=== PATIENT | male | born 1975 | race Caucasian/White ===

== ENCOUNTER 2025-06-08 07:43 | Outpatient (OUT) | payer OTHER, SELFPAY ==
--- OUTSIDE RECORDS SUMMARY | 2025-06-07 08:00 | XMS_ITS | Encounter Summary ---
Author Organization [facility] Address [address] [place] [address] Care Team Providers Care Environmental Lead Name Role Phone Efra Meyers MD Primary Care Provider Reason for Visit * ReasonCommentsHypertensionPt has a bp log with himDiabetes MellitusPt has a log of his blood sugars Encounter Details DateTypeDepartmentCare Team (Latest Contact Info)Jgklpgtxerk48/03/2025 8:00 AM ESTOffice Visit [facility] [address] [place] [address] Pump, Valerie LANDMAN [address] [place] [address] Essential hypertension (Primary Dx); Type 2 diabetes mellitus without complication, without long-term current use of insulin (HCC) Social History Tobacco UseTypesPacks/DayYears UsedDateSmoking Tobacco: NeverPassive Smoke Exposure: PastSmokeless Tobacco: NeverAlcohol UseStandard Drinks/WeekComments Never0 (1 standard drink = 0.6 oz pure alcohol)B1300 Health LiteracyAnswerDate RecordedHow often do you need to have someone help you when you read instructions, pamphlets, or other written material from your doctor or pharmacy? Never05/31/2024Social Connection and Isolation PanelAnswerDate RecordedIn a typical week, how many times do you talk on the phone with family, friends, or neighbors?More than three times a week05/31/2024How often do you get together with friends or relatives?More than three times a week05/31/2024How often do you attend sabianism or episcopal services?Patient qolvhxyi12/26/2024Do you belong to any clubs or organizations such as sabianism groups, unions, fraternal or athletic groups, or school groups?No05/31/2024How often do you attend meetings of the clubs or organizations you belong to?Never05/31/2024re you , , , , never , or living with a partner?Living with partner 05/31/2024UDIT-CAnswerDate RecordedQ1: How often do you have a drink containing alcohol?Never05/31/2024Q2: How many drinks containing alcohol do you have on a typical day when you are drinking?Patient does not drink05/31/2024Q3: How often do you have six or more drinks on one occasion?Never05/31/2024Overall Financial Resource Strain (CARDIA)AnswerDate RecordedHow hard is it for you to pay for the very basics like food, housing, medical care, and heating?Not very hard 05/31/2024[facility] [place] [facility] - Occupational Stress QuestionnaireAnswerDate RecordedDo you feel stress - tense, restless, nervous, or anxious, or unable to sleep at night because yourmind is troubled all the time - these days?Not at all05/31/2024Exercise Vital SignAnswerDate RecordedOn average, how many days per week do you engage in moderate to strenuous exercise (like a brisk walk)?4 days05/31/2024On average, how many minutes do you engage in exercise at this level?20 min05/31/2024Hunger Vital SignAnswerDate Recorded Within the past 12 months, you worried that your food would run out before you got the money to buymore.Never true05/31/2024Within the past 12 months, the food you bought just didn't last and you didn't have money to get more.Never true 05/31/2024RAPARE - TransportationAnswerDate RecordedIn the past 12 months, has lack of transportation kept you from medical appointments or from getting medications?No05/31/2024In the past 12 months, has lack of transportation kept you from meetings, work, or from getting things needed for daily living?No 05/31/2024Housing Stability Vital SignAnswerDate RecordedIn the last 12 months, was there a time when you were not able to pay the mortgage or rent on time?No 05/31/2024Number of Times Moved in the Last YearNot on file05/31/2024t any time in the past 12 months, were you homeless or living in a usp (including now)? No05/31/2024Sex and Gender InformationValueDate RecordedSex Assigned at BirthNot on fileLegal MqxHnlg5509/17/2022 6:30 PM EDTGender IdentityNot on fileSexual OrientationNot on filedocumented as of this encounter Last Filed Vital Signs Vital SignReadingTime TakenCommentsBlood Tmbplacg216/7806/07/2025 8:21 AM EST Xyvps940206/07/2025 7:53 AM ESTTemperature--Respiratory Rate--Oxygen Saturation-- Inhaled Oxygen Concentration--Ecbvju009 kg (228 lb 12.8 oz)06/07/2025 7:53 AM ESTHeight--Body Mass Index38.6705/24/2025 7:56 AM ESTdocumented in this encounter Progress Notes * Valerie Pump, LANDMAN - 06/07/2025 8:00 AM EST Images from the original note were not included. kasey Boy Mathew is a 49 y.o. male presents with chief complaint of Hypertension (Pt has a bp log with him) and Diabetes Mellitus (Pt has a log of his blood sugars) HPI: Hypertension Pertinent negatives include no chest pain, headaches, neck pain, palpitations or shortness of breath. History of Present Illness The patient is a 49-year-old male who presents for follow-up of hypertension and diabetes. Blood pressure readings at home are typically in the range of 120s to 130s, with occasional readings reaching 130. Current medications include atenolol, lisinopril, and metformin 500 mg once daily. The last A1c check in 11/2024 was 5.9. He has a surgery scheduled for 06/22/2025 or 06/23/2025 for polyp removal in his nose, which is expected to take approximately 15 minutes. Additionally, there is a chain of swollen lymph nodes on theright side of his neck, which the specialist is not overly concerned about. SUBJECTIVE: MEDICATIONS: Current Outpatient Medications Medication Instructions aspirin 81 MG EC tablet Every 24 hours atenolol (TENORMIN) 25 mg, Oral, 2 times daily atorvastatin (LIPITOR) 10 mg, Oral, Daily cetirizine (ZYRTEC) 10 mg, Oral, Daily PRN fluticasone (Flonase) 50 MCG/ACT nasal spray Two sprays on left side twice daily. Shake gently. Before first use, prime pump. After use, clean tip and replace cap. FreeStyle lancets Use to check blood sugars once a day glucose blood (FREESTYLE LITE) test strip Use to check blood sugars once a day lisinopril 10 mg, Oral, Daily metFORMIN XR (Glucophage-XR) 500 MG 24 hr tablet TAKE 1 TABLET IN THE EVENING WITH A MEAL ALLERGIES: Allergies[1] History: Medical History[2] Surgical History[3] Family History[4] Social History Socioeconomic History Marital status: Unmarried Spouse name: Not on file Number of children: Not on file Years of education: Not on file Highest education level: Not on file Occupational History Not on file Tobacco Use Smoking status: Never Passive exposure: Past Smokeless tobacco: Never Vaping Use Vaping status: Never Used Substance and Sexual Activity Alcohol use: Never Drug use: Never Sexual activity: Defer Other Topics Concern Not on file Social History Narrative Not on file Social Drivers of Health Financial Resource Strain: Low Risk (05/31/2024) Overall Financial Resource Strain (CARDIA) Difficulty of Paying Living Expenses: Not very hard Food Insecurity: No Food Insecurity (05/31/2024) Hunger Vital Sign Worried About Running Out of Food in the Last Year: Never true Ran Out of Food in the Last Year: Never true Transportation Needs: No Transportation Needs (05/31/2024) PRAPARE - Transportation Lack of Transportation (Medical): No Lack of Transportation (Non-Medical): No Physical Activity: Insufficiently Active (05/31/2024) Exercise Vital Sign Days of Exercise per Week: 4 days Minutes of Exercise per Session: 20 min Stress: No Stress Concern Present (05/31/2024) [place] [facility] - Occupational Stress Questionnaire Feeling of Stress : Not at all Social Connections: Unknown (05/31/2024) Social Connection and Isolation Panel Frequency of Communication with Friends and Family: More than three times a week Frequency of Social Gatherings with Friends and Family: More than three times a week Attends Holiness Services: Patient declined Active Member of Clubs or Organizations: No Attends Club or Organization Meetings: Never Marital Status: Living with partner Intimate Partner Violence: Not on file Housing Stability: Unknown (05/31/2024) Housing Stability Vital Sign Unable to Pay for Housing in the Last Year: No Number of Times Moved in the Last Year: Not on file Homeless in the Last Year: No I have reviewed and reconciled the history and medication list with the patient today. REVIEW OF SYMPTOMS: Review of Systems Constitutional: Negative. Negative for appetite change, chills, fatigue and fever. HENT: Negative. Negative for congestion, ear discharge, ear pain, postnasal drip, rhinorrhea, sinuspressure, sinus pain, sneezing, sore throat and trouble swallowing. Eyes: Negative. Negative for visual disturbance. Respiratory: Negative. Negative for cough, shortness of breath and wheezing. Cardiovascular: Negative. Negative for chest pain, palpitations and leg swelling. Gastrointestinal: Negative. Negative for abdominal distention, abdominal pain, blood in stool, diarrhea, nausea and vomiting. Genitourinary: Negative. Negative for decreased urine volume, difficulty urinating, dysuria, flank pain, frequency, hematuria and urgency. Musculoskeletal: Negative. Negative for arthralgias, myalgias and neck pain. Skin: Negative. Negative for rash. Small mass on right side of neck, decreased in size and following with ENT. Neurological: Negative for dizziness, tremors, weakness, light-headedness and headaches. Psychiatric/Behavioral: Negative. Negative for confusion, decreased concentration, self-injury and sleep disturbance. The patient is not nervous/anxious and is not hyperactive. Hematological: Negative. Negative for adenopathy. Does not bruise/bleed easily. Endocrine: Negative. Negative for polydipsia and polyphagia. Allergic/Immunologic: Negative for environmental allergies, food allergies and immunocompromised state. OBJECTIVE: Results Labs - A1c: 11/2024, 5.9% 08/24/2024 8:24 AM 11/29/2024 8:15 AM 02/27/2025 2:27 PM 04/07/2025 11:42 AM 04/19/2025 8:08 AM 05/24/2025 7:56 AM 06/07/2025 7:53 AM Vitals BMI 38.26 kg/m2 38.06 kg/m2 38.84 kg/m2 38.7 kg/m2 38.7 kg/m2 38.67 kg/m2 BSA (m2) 2.17 m2 2.15 m2 2.18 m2 2.18 m2 2.18 m2 2.18 m2 Systolic 130 132 132 128 164 125 158 Diastolic 76 76 84 76 80 69 80 Heart Rate 58 60 58 80 64 63 64 SpO2 97 % 97 % Temp 98.2 ??F Height (in) 5' 4.5 5' 4.5 5' 4.5 Weight (lb) 226.4 225.2 229.8 229 229 228.8 Visit Report Report Report Report Report Report Report Report Physical Exam Vitals and nursing note reviewed. Constitutional: General: He is not in acute distress. Appearance: Normal appearance. He is not ill-appearing, toxic-appearing or diaphoretic. HENT: Head: Normocephalic. Mouth/Throat: Mouth: Mucous membranes are moist. Cardiovascular: Rate and Rhythm: Normal rate and regular rhythm. Pulses: Normal pulses. Heart sounds: Normal heart sounds. No murmur heard. No friction rub. No gallop. Pulmonary: Effort: Pulmonary effort is normal. No respiratory distress. Breath sounds: Normal breath sounds. No wheezing, rhonchi or rales. Abdominal: General: Bowel sounds are normal. There is no distension. Palpations: Abdomen is soft. Tenderness: There is no abdominal tenderness. Musculoskeletal: General: No swelling or deformity. Normal range of motion. Cervical back: Normal range of motion and neck supple. Skin: General: Skin is warm and dry. Capillary Refill: Capillary refill takes less than 2 seconds. Findings: No bruising or erythema. Neurological: General: No focal deficit present. Mental Status: He is alert and oriented to person, place, and time. Mental status is at baseline. Motor: No weakness. Gait: Gait normal. Psychiatric: Mood and Affect: Mood normal. Behavior: Behavior normal. Thought Content: Thought content normal. Judgment: Judgment normal. Physical Exam Ears: Small amount of white discharge noted. Neck: Right cervical lymph node decreased in size from nickel to dime. Respiratory: Clear to auscultation, no wheezing, rales or rhonchi. ASSESSMENT AND PLAN: Assessment/Plan Diagnoses and all orders for this visit: Essential hypertension Type 2 diabetes mellitus without complication, without long-term current use of insulin (HCC) Assessment & Plan 1. Hypertension: - Blood pressure readings are within the target range, with home measurements typically around 120s/80s and occasional readings up to 130s. In-office reading was 138/78. - He is currently on atenolol and lisinopril. No changes to his hypertension management are necessary at this time. 2. Diabetes mellitus: - His A1c level was recorded as 5.9 in 11/2024, indicating good control of his diabetes. - He is advised to consult an email marketer for a diabetic retinopathy exam before his next appointment. Laboratory tests will be conducted today, including a urine test. - He is currently on metformin 500 mg once a day. Steroids can increase blood sugar levels, so caution is advised if prescribed. 3. Swollen lymph nodes: - He has a chain of swollen lymph nodes on the right side of his neck, which is likely an inflammatory response. - This will be monitored, and further investigation will be done if necessary. 4. Nasal polyp: - He has a nasal polyp scheduled for removal in two weeks. The procedure is expected to be quick and uncomplicated. - The polyp will be biopsied after removal. 5. Health maintenance: - He declined the influenza vaccine and the COVID-19 vaccine. A pneumonia vaccine was recommended due to his diabetes and age, with a suggestion to receive one now and another at age 63. Follow-up: The patient will follow up in 11/2024 for his wellness visit or sooner if needed. 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 No pertinent surgical history. [4] Family History Problem Relation Name Age of Onset Other (Low HDL) Mother Sherri Mathew Other (High cholesterol) Mother Sherri Mathew Other (Glucose intolerance) Mother Sherri Mathew Diabetes Mother Sherri Mathew Other (Low HDL) Father Tomas Mathew Other (High cholesterol) Father Tomas Mathew Other (CKD) Father Tomas Mathew Diabetes Father Tomas Mathew Heart disease Father Tomas Mathew Skin cancer Paternal Grandmother documented in this encounter Plan of Treatment DateTypeDepartmentCare Team (Latest Contact Info)Mgrxfnbalmw60/29/2025 8:00 AM ESTOffice Visit [facility] [place] [facility] [address] [facility] [address] [place] [address] Radha Garza MD [address] [facility] [address] [place] [address] 11/30/2025 8:00 AM EDTOffice Visit [facility] [address] [facility] [place] [id number] Valerie Berry NP [address] [facility] [place] [id number] documented as of this encounter Visit Diagnoses Diagnosis Essential hypertension- Primary Unspecified essential hypertension Type 2 diabetes mellitus without complication, without long-term current use of insulin (HCC) documented in this encounter Care Teams Team MemberRelationshipSpecialtyStart DateEnd Date Efra Meyers MD [address] [facility], [place] [id number] PCP - GeneralFamily Medicine04/04/25documented as of this encounter
--- OUTSIDE RECORDS SUMMARY | 2025-06-08 07:51 | XMS_ITS | Clinical Summary ---
Author Organization [employer] [facility] Address [id number] [place] [address] Care Team Providers Care Payroll Representative Name Role Phone Yessica Keen MD Primary Care Provider [phone] Allergies Active AllergyReactionsCriticalityNoted DateCommentsNo Known Drug Allergies 07/03/2016 Medications MedicationSigDispense QuantityRefillsLast FilledStart DateEnd DateStatus atenolol (TENORMIN) 25 mg tablet Take 25 mg by mouth 2 (two) times a day.05/25/2016Active XARELTO tablet 20 mg.06/12/2016Active Social History Tobacco UseTypesPacks/DayYears UsedDateSmoking Tobacco: NeverSmokeless Tobacco: NeverAlcohol UseStandard Drinks/WeekCommentsNo0 (1 standard drink = 0.6 oz pure alcohol)ChildcareAnswerDate FfnnjvswOobepwzfeDgdcead70/12/2019EmploymentAnswer Date FsqgthvkZhkcyibedaZmjvgvo48/12/2019Purpose - LifeAnswerDate RecordedPurpose and direction in sxceRsvgina22/11/2021Sex and Gender InformationValueDate RecordedSex Assigned at BirthNot on fileLegal HmdQpyo7402/08/2015 11:35 AM EDT Gender IdentityNot on fileSexual OrientationNot on file Last Filed Vital Signs Vital SignReadingTime TakenCommentsBlood Igdsjomp771/9807/03/2016 2:01 PM EST Ilwow351707/03/2016 2:01 PM ESTTemperature--Respiratory Ctoc516709/03/2015 2:01 PM ESTOxygen Saturation--Inhaled Oxygen Concentration--Yuitcs855.6 kg (235 lb) 07/03/2016 2:01 PM RKLXscidq179.6 cm (5' 4 )07/03/2016 2:01 PM ESTBody Mass Index40.34109/03/2015 2:01 PM EST Plan of Treatment Health MaintenanceDue DateLast DoneCommentsDepression Hmuoxqafo45/14/1986Tobacco Mytjgazep90/14/1986Adult BMI Phqppdvsr90/14/1992DTaP,Tdap and Td Vaccines (1 - Tdap)1992Zoster (Shingles) Vaccine (1 of 2)10/18/2023Influenza Vaccine 03/06/2025 Medical Devices Not on file Insurance Care Teams Team MemberRelationshipSpecialtyStart DateEnd Yessica Keen MD [address] [place] [address] PCP - GeneralFamily Qwsayogq47/19/16
--- OUTSIDE RECORDS SUMMARY | 2025-06-08 07:51 | XMS_ITS | Clinical Summary ---
Author Organization [facility] Address [address] [place] [address] Care Team Providers Care Resistor Inspector Name Role Phone Efra Meyers MD Primary Care Provider [phone] Allergies Active AllergyReactionsCriticalityNoted SqexLjpaktdiBztrsOkswlox66/16/2023 Grasses Animal Dander Medications MedicationSigDispense QuantityRefillsLast FilledStart DateEnd DateStatus aspirin 81 MG EC tablet 1 (one) time each day at the same timeActive metFORMIN XR (Glucophage-XR) 500 MG 24 hr tablet Indications:Type 2 diabetes mellitus without complication, without long-term current use of insulin (HCC)TAKE 1 TABLET IN THE EVENING WITH A MEAL 90 tablet 5Active lisinopril 10 MG tablet Indications:Essential hypertensionTAKE 1 TABLET DAILY 90 tablet 5Active atenolol (Tenormin) 25 MG tablet Indications:Essential hypertensionTake 1 tablet (25 mg) by mouth in the morning and 1 tablet (25 mg) before bedtime. 180 tablet 5Active glucose blood (FREESTYLE LITE) test strip Indications:Type 2 diabetes mellitus without complication, without long-term current use of insulin (HCC)Use to check blood sugars once a day 100 each 5Active FreeStyle lancets Indications:Type 2 diabetes mellitus without complication, without long-term current use of insulin (HCC)Use to check blood sugars once a day 100 each 5Active cetirizine (ZyrTEC) 10 MG tablet Indications:Nasal polypTake 1 tablet (10 mg) by mouth Daily as needed for allergies 90 tablet 6Active atorvastatin (Lipitor) 10 MG tablet Indications:Hyperlipidemia, unspecified hyperlipidemia typeTake 1 tablet (10 mg) by mouth Daily 30 tablet 5Active amoxicillin-clavulanate (Augmentin) 875-125 MG tablet Indications:Nasal polypTake 1 tablet (875 mg) by mouth in the morning and 1 tablet (875 mg) before bedtime. 60 tablet Discontinued(Therapy completed) fluticasone (Flonase) 50 MCG/ACT nasal spray Indications:Nasal polypTwo sprays on left side twice daily. Shake gently. Before first use, prime pump. After use, clean tip and replace cap. 48 g Discontinued(Therapy completed) Active Problems ProblemNoted DateDiagnosed DateType 2 diabetes mellitus without complication, without long-term current use of izvihbp9905/21/2023Essential hypertension 05/21/2023High density lipoprotein (HDL) less than 40 mg/dL05/21/2023Metabolic hpufjrrw64/16/2023Obesity (BMI 30-39.9)05/21/2023High blood triglycerides 05/21/2023 Encounters DateTypeDepartmentCare IdawImfvryoglpt40/03/2025 8:00 AM ESTOffice Visit [facility] [address] [place] [phone] PumpValerie, GEOPOLITICS TEACHER Essential hypertension (Primary Dx); Type 2 diabetes mellitus without complication, without long-term current use of insulin ([facility])06/07/2025amboo flowsheet [facility] [address] [facility] [place] [address] PumpValerie GEOPOLITICS TEACHER 06/07/20258723Uwvcyx98/19/2025 8:10 AM ESTOffice Visit [facility] [place] [facility] [address] [place] [address] Radha Garza MD LAD (lymphadenopathy) of right cervical region (Primary Dx); Nasal polyp05/24/2025amboo flowsheet [facility] [place] [facility] [address] [place] [address] Radha Garza MD 05/24/20259403Yzohoh69/10/2025 11:45 AM ESTAncillary Procedure [facility] [address] [facility] [address] [place] [address] LAD (lymphadenopathy) of right cervical nuptif3105/15/2025 11:30 AM ESTAncillary Procedure [facility] [address] [facility] [address] [place] [address] LAD (lymphadenopathy) of right cervical hilnvx8805/15/20254760Eetsbn89/24/2025Refill [facility] [address] [facility] [address] Efra Meyers MD Hyperlipidemia, unspecified hyperlipidemia type04/19/2025 8:10 AM EDTOffice Visit [facility] [address] [facility] [address] [place] [address] Radha Garza MD LAD (lymphadenopathy) of right cervical region (Primary Dx); Nasal polyp; Type 2 diabetes mellitus without complication, without long-term current use of insulin (HCC)04/19/2025amboo flowsheet [facility] [address] [facility] [address] [place] [address] Radha Garza MD 04/19/20254959Btdvuw94/13/2025Telephone [facility] [address] [place] [address] Pump, Valerie, GEOPOLITICS TEACHER 04/14/2025Results Follow-Up [facility] [address] [place] [address] Pump, Valerie, GEOPOLITICS TEACHER CT soft tissue neck w IV lfotnmps87/10/2025Telephone [facility] [address] [place] [address] Efra Meyers MD 04/12/2025 10:00 AM EDTAncillary Procedure [facility] [address] [facility] [address] [place] [address] Neck mass04/12/20259733Jxxrcc35/06/2025Orders Only [place] [address] [facility] [place] [address] Pump, Valerie, GEOPOLITICS TEACHER Neck mass (Primary Dx)04/10/2025Results Follow-Up [address] [place] [phone] Pump, Valerie, GEOPOLITICS TEACHER US head neck soft ijfgea8904/07/2025 12:00 PM EDTAncillary Procedure [facility] [facility] [address] [place] [address] Palpable mass of neck04/07/2025 11:30 AM EDTOffice Visit [address] [place] [address] Pump, Valerie, GEOPOLITICS TEACHER Palpable mass of neck (Primary Dx); Essential ammijrqpcfus40/03/2025amboo flowsheet [place] [address] [facility] [place] [address] Pump, Valerie, GEOPOLITICS TEACHER 04/07/20258614Iukylr72/30/2025Refill [place] [address] [facility] [place] [address] Pump, Valerie, GEOPOLITICS TEACHER Type 2 diabetes mellitus without complication, without long-term current use of insulin (HCC)04/04/2025Refill [place] [address] [place] [phone] Yessica Keen MD Type 2 diabetes mellitus without complication, without long-term current use of insulin (HCC)from Last 3 Months Immunizations ImmunizationAdministration DatesNext DueInfluenza, injectable, quadrivalent 03/22/2020Tdap107/20/2018 Family History Medical HistoryRelationNameCommentsCKDFatherBruce ReedDiabetesFatherBruce Quincy Heart diseaseFatherBruce ReedHigh cholesterolFatherBruce ReedLow HDLFatherBruce ReedDiabetesMotherCaroline ReedGlucose intoleranceMotherCaroline ReedHigh cholesterolMotherCaroline ReedLow HDLMotherCaroline ReedSkin cancerPaternal GrandmotherRelationNameStatusCommentsFatherBruce ReedAliveMotherCaroline Quincy AlivePaternal GrandmotherSisterx1 Social History Tobacco UseTypesPacks/DayYears UsedDateSmoking Tobacco: NeverPassive [...] times a week05/31/2024How often do you attend anabaptism or mormon services?Patient /26/2024Do you belong to any clubs or organizations such as anabaptism groups, unions, fraTechlicious or athletic groups, or school groups?No05/31/2024How often [...] housing, medical care, and heating?Not very hard 05/31/2024[facility] [place] [facility] - Occupational Stress QuestionnaireAnswerDate [...] were you homeless or living in a fpc (including now)? No05/31/2024Sex and Gender InformationValueDate RecordedSex Assigned at BirthNot on fileLegal MnpAwvw3509/17/2022 6:30 PM EDTGender IdentityNot on fileSexual OrientationNot on file Last Filed Vital Signs Vital SignReadingTime TakenCommentsBlood Mzozczsy259/7806/07/2025 8:21 AM EST Ovgul246306/07/2025 7:53 AM FLEOjcufyaeusn40.8 ??C (98.2 ??F)08/24/2024 8:24 AM ESTRespiratory Rate--Oxygen Ypdobtxmbr58%02/27/2025 2:27 PM EDTInhaled Oxygen Concentration--Sryvww440 kg (228 lb 12.8 oz)06/07/2025 7:53 AM YRERhsnxi338.8 cm (5' 4.5 )05/24/2025 7:56 AM ESTBody Mass Index38.6705/24/2025 7:56 AM EST Plan of Treatment DateTypeDepartmentCare Team (Latest Contact Info)Jlbcqizhgkm38/29/2025 8:00 AM ESTOffice Visit [facility] [address] [facility] [address] [place] [address] Radha Garza MD [address] [facility] [address] [place] [address] 11/30/2025 8:00 AM EDTOffice Visit [facility] [address] [place] [phone] Valerie Berry NP [address] [place], [place] [id number] Health MaintenanceDue DateLast DoneCommentsCT Xuyktiutxddk51/14/1974Colonoscopy 1973FIT1973FOBT1973 7891Afxxvacsfvkeh47/14/1974Pneumococcal Vaccine: Pediatrics (0 to 5 Years) and At-Risk Patients (6 to 64 Years) (1 of 2 - PCV)1992Diabetes: Retinopathy Cvgksdyzt71/3Diabetes: Urine Protein Byjwspfuk78/11/056947/05/2024, 05/18/2023, 2Diabetes: Hemoglobin A1C612/09/2024, 11/29/2024, 05/16/2024, Additional history existsInfluenza Vaccine (#1)/Postponed from 03/06/2025 (Patient Refused)Colorectal Cancer Fymwxangb46/18/2027FIT-DNA12/21/2026 12/22/2023OVID-19 VrvlcdnUujretgplmaz45/24/2021, 10/29/2020 Procedures Procedure NamePriorityDate/TimeAssociated DiagnosisCommentsCOMPREHENSIVE METABOLIC QGHPOJtqlnqq81/03/2025 8:32 AM EST Essential hypertension Type 2 diabetes mellitus without complication, without long-term current use of insulin (HCC) Metabolic syndrome LIPID QXFRXOqxkgqd10/03/2025 8:32 AM EST High blood triglycerides High density lipoprotein (HDL) less than 40 mg/dL HEMOGLOBIN S9ZDdkipoo34/03/2025 8:32 AM EST Type 2 diabetes mellitus without complication, without long-term current use of insulin (HCC) CT SOFT TISSUE NECK WO IV TWLIRGMGTugtvql35/10/2025 12:02 PM EST LAD (lymphadenopathy) of right cervical region US HEAD NECK SOFT MRBHFFGydidsw42/10/2025 11:38 AM EST LAD (lymphadenopathy) of right cervical region CT SOFT TISSUE NECK W IV CKGGIVICMppqocf27/08/2025 10:26 AM EDT Neck mass US HEAD NECK SOFT XZCRLDBUKG54/03/2025 12:22 PM EDT Palpable mass of neck MICROALBUMIN / CREATININE URINE RQTQEViherwx43/11/2024 8:01 AM EST Type 2 diabetes mellitus without complication, without long-term current use of insulin (HCC) LAB COLOGUARD?? COLON CANCER HSNNJWSaxcpba62/18/2024 5:05 PM EDT Screening for colon cancer DIABETIC RETINOPATHY SCREENING - OU - BOTH GJPJZcrnwmr46/12/2023 12:32 PM EDT from Last 3 Months or Most Recently Relevant to Health Maintenance Results * (ABNORMAL) Hemoglobin A1c (06/07/2025 8:32 AM EST)ComponentValueRef RangeTest MethodAnalysis TimePerformed AtPathologist SignatureHemoglobin A1C6.0(H)<5.7 % QUESTComment: For someone without known diabetes, a hemoglobin A1c value between 5.7% and 6.4% is consistent with prediabetes and should be confirmed with a follow-up test. For someone with known diabetes, a value <7% indicates that their diabetes is well controlled. A1c targets should be individualized based on duration of diabetes, age, comorbid conditions, and other considerations. This assay result is consistent with an increased risk of diabetes. Currently, no consensus exists regarding use of hemoglobin A1c for diagnosis of diabetes for children. Specimen (Source)Anatomical Location / LateralityCollection Method / Volume Collection TimeReceived TimeBloodVenous blood specimen / Ahfcyav5506/07/2025 8:32 AM EST06/07/2025 3:44 PM EST Narrative [facility] - 06/08/2025 1:47 AM EST MULTIPLE COLLECTION TIMES FOR SAME TEST TYPE. Resulting Agency Comment Performing Organization Information ?Site ID: QPT ?Name: [employer] [facility] ?Address: [address] [place] [address], [address] [place] [phone] ?Director: Cody Iniguez MD Authorizing ProviderResult TypeResult StatusElizabefidel Leal [facility] BLOOD ORDERABLESFinal ResultPerforming OrganizationAddressCity/State/ZIP CodePhone Number [facility] * (ABNORMAL) Lipid panel (06/07/2025 8:32 AM EST)ComponentValueRef RangeTest MethodAnalysis TimePerformed AtPathologist SignatureCHOLESTEROL, RWLOT815<200 mg/dLQUESTHDL KAZKGBOTHXW90(L)> OR = 40 mg/aVXWVFGNYABXWTFETVVX826(H)<150 mg/dLQUESTComment: If a non-fasting specimen was collected, consider repeat triglyceride testing on a fasting specimen if clinically indicated. William et al. J. of Clin. Lipidol. 2015;9:129-169. LDL PZBXYPTBOXJ74mm/dL (calc)QUESTComment: Reference range: <100 Desirable range <100 mg/dL for primary prevention; <70 mg/dL for patients with CHD or diabetic patients with > or = 2 CHD risk factors. LDL-C is now calculated using the Alli-Sarah calculation, which is a validated novel method providing better accuracy than the Friedewald equation in the estimation of LDL-C. Alli RODRIGUES et al. EDWARDO. 2013;310(19): 9553-3626 (http://education.GoSporty.Flogs.com/faq/BMR060) CHOL/HDLC RATIO2.8<5.0 (calc)QUESTNON HDL GBSYIWSUGIA26<130 mg/dL (calc)QUEST Comment: For patients with diabetes plus 1 major ASCVD risk factor, treating to a non-HDL-C goal of <100 mg/dL (LDL-C of <70 mg/dL) is considered a therapeutic option. Specimen (Source)Anatomical Location / LateralityCollection Method / Volume Collection TimeReceived TimeBloodVenous blood specimen / Amphxmw1206/07/2025 8:32 AM EST06/07/2025 3:44 PM EST Narrative [facility] - 06/08/2025 1:47 AM EST MULTIPLE COLLECTION TIMES FOR SAME TEST TYPE. Resulting Agency Comment Performing Organization Information ?Site ID: QPT ?Name: [employer] [facility] ?Address: [address] [place] [address], [address] [place] [phone] ?Director: Cody Iniguez MD Authorizing ProviderResult TypeResult StatusElizabefidel Leal [facility] BLOOD ORDERABLESFinal ResultPerforming OrganizationAddressCity/State/ZIP CodePhone Number [facility] * (ABNORMAL) Comprehensive metabolic panel (06/07/2025 8:32 AM EST)Component ValueRef RangeTest MethodAnalysis TimePerformed AtPathologist SignatureGlucose 152(H)65 - 99 mg/dLQUESTComment: ? Fasting reference interval For someone without known diabetes, a glucose value >125 mg/dL indicates that they may have diabetes and this should be confirmed with a follow-up test. OKY015 - 25 mg/dLQUESTCreatinine1.010.70 - 1.30 mg/cGQZRIRMNOD50> OR = 60 mL/min/1.59l2UGSNRSZN/CREATININE RATIOSEE NOTE: (calc)QUESTComment: ?? Not Reported: BUN and Creatinine are within ?? reference range. ? Wgvzwg466018 - 146 mmol/LQUESTPotassium, Bld4.23.5 - 5.3 mmol/XYIVDTGpmrvpat969 98 - 110 mmol/LQUESTCarbon Weqzdkp8564 - 32 mmol/LQUESTCalcium9.28.6 - 10.3 mg/dLQUESTPROTEIN, TOTAL7.06.1 - 8.1 g/dLQUESTALBUMIN4.63.6 - 5.1 g/dLQUEST GLOBULIN2.41.9 - 3.7 g/dL (calc)QUESTALBUMIN/GLOBULIN RATIO1.91.0 - 2.5 (calc) QUESTBILIRUBIN, TOTAL1.00.2 - 1.2 mg/dLQUESTALKALINE XOTUSUUAZND4836 - 144 U/L IVTJQBJT1417 - 35 U/UBJIHATVM670 - 46 U/LQUESTSpecimen (Source)Anatomical Location / LateralityCollection Method / VolumeCollection TimeReceived TimeBlood Venous blood specimen / Ftsxdnx9006/07/2025 8:32 AM EST06/07/2025 3:44 PM EST Narrative [facility] - 06/08/2025 1:47 AM EST MULTIPLE COLLECTION TIMES FOR SAME TEST TYPE. Resulting Agency Comment Performing Organization Information ?Site ID: QTW ?Name: [facility] ?Address: [address] [place] [phone] ?Director: Mariola Beltran Authorizing ProviderResult TypeResult StatusElizabefidel Leal [facility] BLOOD ORDERABLESFinal ResultPerforming OrganizationAddressCity/State/ZIP CodePhone Number [facility] * CT soft tissue neck wo IV contrast (05/15/2025 12:02 PM EST)Anatomical Region LateralityModalityHead, NeckComputed TomographySpecimen (Source)Anatomical Location / LateralityCollection Method / VolumeCollection TimeReceived Time 05/16/2025 12:45 PM EST Impressions 05/16/2025 12:53 PM EST Interval improved cervical lymphadenopathy compared to prior CT, favoring benign process. Other findings as discussed. ELECTRONICALLY SIGNED BY: Antoine Stone MD Narrative 05/16/2025 12:53 PM EST HISTORY: Follow-up. Lymphadenopathy. COMPARISON: CT 04/12/2025 TECHNIQUE: Series of contiguous helical scans from the skull base to the aortic arch without contrast. Non-contrast imaging has limitations in evaluation of some neck pathology. All CT scans at this facility use dose modulation, iterative reconstruction, and/or weight based dosing when appropriate to reduce radiation dose to as low as reasonably achievable. RESULT: Neck: Possible area of polypoid thickening in the left nasal cavity. Oral cavity grossly unremarkable within limits of dental amalgam. Pharyngeal mucosal space is normal in appearance. ??Vallecula and epiglottis are within normal limits and the pre-epiglottic fat is maintained. ??Parotid and submandibular glands are normal in appearance. ??Thyroid gland unremarkable. Again, a marker was placed laterally, superficial to the right sternocleidomastoid muscle, without suspicious lesion at this site. Cervical Lymph Nodes: Interval improvement of the level II cervical lymph nodes, with the largest on the right neck measuring around 11 mm short axis, favoring benign process. Other scattered small lymph nodes throughout the neck. Brain: Visualized brain grossly unremarkable. Orbits grossly unremarkable. Minimal areas of thickening in the visualized paranasal sinuses. Mastoid air cells grossly clear. Lung Apices: Imaged lung apices are clear. ??Infraglottic airway is patent. Bones: No acute osseous findings. Procedure Note Antoine Stone MD - 05/16/2025 HISTORY: Follow-up. Lymphadenopathy. COMPARISON: CT 04/12/2025 TECHNIQUE: Series of contiguous helical scans from the skull base to theaortic arch without contrast. Non-contrast imaging has limitations in evaluation of some neckpathology. All CT scans at this facility use dose modulation, iterativereconstruction, and/or weight based dosing when appropriate to reduceradiation dose to as low as reasonably achievable. RESULT: Neck: Possible area of polypoid thickening in the left nasal cavity. Oralcavity grossly unremarkable within limits of dental amalgam. Pharyngealmucosal space is normal in appearance. Vallecula and epiglottis arewithin normal limits and the pre-epiglottic fat is maintained. Parotidand submandibular glands are normal in appearance. Thyroid glandunremarkable. Again, a marker was placed laterally, superficial to theright sternocleidomastoid muscle, without suspicious lesion at thissite. Cervical Lymph Nodes: Interval improvement of the level II cervical lymphnodes, with the largest on the right neck measuring around 11 mm shortaxis, favoring benign process. Other scattered small lymph nodesthroughout the neck. Brain: Visualized brain grossly unremarkable. Orbits grossly unremarkable. Minimal areas of thickening in the visualized paranasal sinuses. Mastoidair cells grossly clear. Lung Apices: Imaged lung apices are clear. Infraglottic airway ispatent. Bones: No acute osseous findings. IMPRESSION: Interval improved cervical lymphadenopathy compared to prior CT, favoringbenign process. Other findings as discussed. ELECTRONICALLY SIGNED BY: Antoine Stone MD Authorizing ProviderResult TypeResult StatusHilary H Timmis MDG CT PROCEDURES Final Result * US head neck soft tissue (05/15/2025 11:38 AM EST) Only the most recent of2 resultswithin the time period is included. Anatomical RegionLateralityModalityHead, NeckUltrasoundSpecimen (Source) Anatomical Location / LateralityCollection Method / VolumeCollection Time Received Time05/16/2025 12:53 PM EST Impressions 05/16/2025 12:54 PM EST Impression: Unremarkable lymph nodes at the area of concern. ELECTRONICALLY SIGNED BY: Antoine Stone MD Narrative 05/16/2025 12:54 PM EST US HEAD NECK SOFT TISSUE History: Lymphadenopathy. Technique: Sonography of the area of concern was performed. Comparison: Concurrent CT. Ultrasound 04/07/2025. Result: Limited ultrasound performed of the areas of concern. Again there are small lymph nodes in the right posterior neck with normal morphology with the largest measuring 5 mm short axis, not enlarged by size criteria. Procedure Note Antoine Stone MD - 05/16/2025 US HEAD NECK SOFT TISSUE History: Lymphadenopathy. Technique: Sonography of the area of concern was performed. Comparison: Concurrent CT. Ultrasound 04/07/2025. Result: Limited ultrasound performed of the areas of concern. Again there aresmall lymph nodes in the right posterior neck with normal morphology withthe largest measuring 5 mm short axis, not enlarged by size criteria. IMPRESSION: Impression: Unremarkable lymph nodes at the area of concern. ELECTRONICALLY SIGNED BY: Antoine Stone MD Authorizing ProviderResult TypeResult StatusRadha Garza MDBrandt US PROCEDURES Final Result * CT soft tissue neck w IV contrast (04/12/2025 10:26 AM EDT)Anatomical Region LateralityModalityHead, NeckComputed TomographySpecimen (Source)Anatomical Location / LateralityCollection Method / VolumeCollection TimeReceived Time 04/13/2025 1:28 PM EDT Impressions 04/13/2025 1:36 PM EDT Cervical lymphadenopathy as detailed. No soft tissue mass deep to a marker placed on the skin and superficial to the right sternocleidomastoid muscle. ELECTRONICALLY SIGNED BY: Naren Bhagat DO Narrative 04/13/2025 1:36 PM EDT EXAM: CT SOFT TISSUE NECK W IV CONTRAST History: right sided palpable lump with pain and negative US. Technique: Multiple contiguous axial images were obtained of the soft tissues of the neck with contrast. Multiplanar reformats were obtained. All CT scans at this facility use dose modulation, iterative reconstruction, and/or weight based dosing when appropriate to reduce radiation dose to as low as reasonably achievable. Comparison: Ultrasound April 07, 2025 Findings: A marker is placed on the skin of the right side of the neck superficial to the sternocleidomastoidmuscle. No soft tissue mass, fluid collection, or enlarged lymph node deep to this marker. The bilateral parotid glands appear unremarkable. The thyroid gland is within normal limits. The oral cavity, tongue, and tongue base appear within normal limits. Submandibular glands appear unremarkable. Nasopharynx and nasal cavity appear unremarkable. The bilateral house registry rn, parapharyngeal, carotid and retropharyngeal spaces appear unremarkable. Perivertebral spaces appear unremarkable. Enlarged bilateral level 2B cervical chain lymph nodes, the largest of which is located on the right and measures approximately 3.5 cm in long axis by 2 cm in short axis. Epiglottis is within normal limits. Vallecula and piriform sinuses appear unremarkable. Larynx appears unremarkable. Visualized portion of the globes and orbits appear unremarkable. The upper mediastinum appears grossly unremarkable and the lung apices are clear. No supraclavicular lymphadenopathy. Visualized paranasal sinuses are clear. Mastoid air cells and middle ear cavities are clear. Procedure Note Naren Bhagat, - 04/13/2025 EXAM: CT SOFT TISSUE NECK W IV CONTRAST History: right sided palpable lump with pain and negative US. Technique: Multiple contiguous axial images were obtained of the softtissues of the neck with contrast. Multiplanar reformats were obtained. All CT scans at this facility use dose modulation, iterativereconstruction, and/or weight based dosing when appropriate to reduceradiation dose to as low as reasonably achievable. Comparison: Ultrasound April 07, 2025 Findings: A marker is placed on the skin of the right side of the neck superficialto the sternocleidomastoid muscle. No soft tissue mass, fluid collection,or enlarged lymph node deep to this marker. The bilateral parotid glands appear unremarkable. The thyroid gland iswithin normal limits. The oral cavity, tongue, and tongue base appear within normal limits. Submandibular glands appear unremarkable. Nasopharynx and nasal cavity appear unremarkable. The bilateral house registry rn, parapharyngeal, carotid and retropharyngealspaces appear unremarkable. Perivertebral spaces appear unremarkable. Enlarged bilateral level 2Bcervical chain lymph nodes, the largest of which is located on the rightand measures approximately 3.5 cm in long axis by 2 cm in short axis. Epiglottis is within normal limits. Vallecula and piriform sinuses appear unremarkable. Larynx appears unremarkable. Visualized portion of the globes and orbits appear unremarkable. The upper mediastinum appears grossly unremarkable and the lung apices are clear. No supraclavicular lymphadenopathy. Visualized paranasal sinuses are clear.Mastoid air cells and middle ear cavities are clear. IMPRESSION: Cervical lymphadenopathy as detailed. No soft tissue mass deep to a marker placed on the skin and superficial tothe right sternocleidomastoid muscle. ELECTRONICALLY SIGNED BY: Naren Bhagat DO Authorizing ProviderResult TypeResult StatusAmber Pump NPIMG CT PROCEDURESFinal Result * Microalbumin / creatinine, urine ratio (05/16/2024 8:01 AM EST)ComponentValue Ref RangeTest MethodAnalysis TimePerformed AtPathologist SignatureCREATININE, RANDOM [id number] - 320 mg/dLQUESTALBUMIN, URINE0.4See Note: mg/dLQUEST Comment: Reference Range: Reference Range Not established ALBUMIN/CREATININE RATIO, RANDOM URINE2<30 mg/g creatQUESTComment: The ADA defines abnormalities in albumin excretion as follows: Albuminuria Category ?Result (mg/g creatinine) Normal to Mildly increased <30 Moderately increased ? 30-299 Severely increased > OR = 300 The ADA recommends that at least two of three specimens collected within a 3-6 month period be abnormal before considering a patient to be within a diagnostic category. Specimen (Source)Anatomical Location / LateralityCollection Method / Volume Collection TimeReceived TimeUrineUrine specimen obtained by clean catch procedure / Ewmrbzk4005/16/2024 8:01 AM EST05/16/2024 3:25 PM EST Narrative [facility] - 05/17/2024 10:40 AM EST FASTING:YES FASTING: YES Resulting Agency Comment Performing Organization Information ?Site ID: QPT ?Name: [employer] [facility] ?Address: [address] , [address] [place] [address] ?Director: Cody Iniguez MD Authorizing ProviderResult TypeResult StatusElizabefidel Leal NPLAB URINE ORDERABLESFinal ResultPerforming OrganizationAddressCity/State/ZIP CodePhone Number QUEST * Cologuard?? colon cancer screening (12/22/2023 5:05 PM EDT)ComponentValueRef RangeTest MethodAnalysis TimePerformed AtPathologist SignatureNONINV COLON CA DNA+OCC BLD SCRN STL-OVUXnpywbibHahviyzd13/24/2024 10:29 AM EDTEXCambridge Temperature Concepts (CLIA #:[id number])Comment: NEGATIVE TEST RESULT. A negative Cologuard result indicates a low likelihood that a colorectal cancer (CRC) or advanced adenoma (adenomatous polyps with more advanced pre-malignant features) ??is present. The chance that a person with a negative Cologuard test has a colorectal cancer is less than 1in 1500 (negative predictive value >99.9%) or has an advanced adenoma is less than 5.3% (negative predictive value 94.7%). These data are based on a prospective cross-sectional study of 10,000individuals at average risk for colorectal cancer who were screened with both Cologuard and colonoscopy. (Angelina Rockwell al, N Engl J Med 2014;370(14):9699-5658) The normal value (reference range) for this assay is negative. COLOGUARD RE-SCREENING RECOMMENDATION: Periodic colorectal cancer screening is an important part ofpreventive healthcare for asymptomatic individuals at average risk for colorectal cancer. ??Following a negative Cologuard result, the [place] [employer] and U.S. Multi-Society Task Force screening guidelines recommend a Cologuard re-screening interval of 3 years. References: [place] [employer] Guideline for Colorectal Cancer Screening: https://www.cancer.or g/cancer/ybdlr-hvwpql-dmokun/wdbfmlqpk-mzbenssvu-hnejvoa/acs-recommendations.htm subhash; Anirudh DE LA O, Shannan PINA, Dania LYLES, Colorectal Cancer Screening: Recommendations for Physicians and Patients from the U.S. Multi-Society Task Force on Colorectal Cancer Screening , Am J Gastroenterology 2017; 112:8218-4045. TEST DESCRIPTION: Composite algorithmic analysis of stool DNA-biomarkers with hemoglobin immunoassay. ?? Quantitative values of individual biomarkers are not reportable and are not associated with individual biomarker result reference ranges. Cologuard is intended for colorectal cancer screening ofadults of either sex, 45 years or older, who are at average-risk for colorectal cancer (CRC). Cologuard has been approved for use by the U.S. FDA. The performance of Cologuard was established in a cross sectional study of average-risk adults aged 50-84. Cologuard performance in patients ages 45 to 49 years was estimated by sub-group analysis of near-age groups. Colonoscopies performed for a positive result may find as the most clinically significant lesion: colorectal cancer [4.0%], advanced adenoma (including sessile serrated polyps greater than or equal to 1cm diameter) [20%] or non- advanced adenoma [31%]; or no colorectal neoplasia [45%]. These estimates are derived from a prospective cross-sectional screening study of 10,000 individuals at average risk for colorectal cancer who were screened with both Cologuard and colonoscopy. (Angelina Willson. et al, N Engl J Med 2014;370(14):8372-1350.) Cologuard may produce a false negative or false positive result (no colorectal cancer or precancerous polyp present at colonoscopy follow up). A negative Cologuard test result does not guarantee the absence of CRC or advanced adenoma (pre-cancer). The current Cologuard screening interval is every 3 years. ([place] [employer] and U.S. Multi-Society Task Force). Cologuard performance data in a 10,000 patient pivotal study using colonoscopy as the reference method can be accessed at the following location: www.Nextance.Flogs.com/results. Additional description of the Cologuard test process, warnings and precautions can be found at www.cologuard.com. Specimen (Source)Anatomical Location / LateralityCollection Method / Volume Collection TimeReceived TimeStool specimen (specimen)12/22/2023 5:05 PM EDT 12/24/2023 1:08 PM EDT Narrative Authorizing ProviderResult TypeResult StatusElizabefidel [facility] ORDERABLESFinal ResultPerforming OrganizationAddressCity/State/ZIP CodePhone Number [employer] (CLIA #:[id number]) [address]na [address] [place] [address], * Diabetic Retinopathy Screening - OU - Both Eyes (02/14/2023 12:32 PM EDT) Anatomical RegionLateralityModalityHeadOther Narrative Authorizing ProviderResult TypeResult StatusNoms Provider Unallocated MDOPHTH PHOTOGRAPHYFinal Result from Last 3 Months or Most Recently Relevant to Health Maintenance Insurance Care Teams Team MemberRelationshipSpecialtyStart DateEnd Date Efra Meyers MD [address] [place] [address] PCP - GeneralFamily Medicine04/04/25
--- OUTSIDE RECORDS SUMMARY | 2025-06-08 07:51 | XMS_ITS | Encounter Summary ---
Author Organization [facility] Address [address] [place] [address] Care Team Providers Care Graphics Production Specialist Name Role Phone Efra Meyers MD Primary Care Provider [phone] Encounter Details DateTypeDepartmentCare Team (Latest Contact Info)Zlglzfwwskb94/03/2025Travel Social History Tobacco UseTypesPacks/DayYears UsedDateSmoking Tobacco: NeverPassive [...] times a week05/31/2024How often do you attend faith or roman catholic services?Patient uwgecfzq52/26/2024Do you belong to any clubs or organizations such as faith groups, unions, fraternal or athletic groups, or [...] housing, medical care, and heating?Not very hard 05/31/2024[facility] [place] of Occupational Health - Occupational Stress QuestionnaireAnswerDate [...] were you homeless or living in a nursing home (including now)? No05/31/2024Sex and Gender InformationValueDate RecordedSex Assigned at BirthNot on fileLegal JcsUkwc3909/17/2022 6:30 PM EDTGender IdentityNot on fileSexual OrientationNot on filedocumented as of this encounter Plan of Treatment DateTypeDepartmentCare Team (Latest Contact Info)Eajurorkchv21/29/2025 8:00 AM ESTOffice Visit [facility]John [facility] [address] [facility] [address] [place] [address] Radha Garza MD [address] [facility] [address] [place] [address] 11/30/2025 8:00 AM EDTOffice Visit [facility] [address] [facility] [place] [phone] Valerie Berry NP [address] [facility] [place] [address] documented as of this encounter Visit Diagnoses Not on filedocumented in this encounter Care Teams Team MemberRelationshipSpecialtyStart DateEnd Date Efra Meyers MD [address] [facility] [place] [address] PCP - GeneralFamily Medicine04/04/25documented as of this encounter
--- OUTSIDE RECORDS SUMMARY | 2025-06-08 07:51 | XMS_ITS | Encounter Summary ---
Author Organization [facility] Address [address] [place] [facility] [place] [address] Care Team Providers Care Roll Former Name Role Phone Efra Meyers MD Primary Care Provider [phone] Encounter Details DateTypeDepartmentCare Team (Latest Contact Info)Apxygtqgsgn58/03/2025amboo flowsheet [facility] Medicine [address] [place] [address] Valerie Berry NP [address] [place], [place] [id number] Social History Tobacco UseTypesPacks/DayYears UsedDateSmoking Tobacco: NeverPassive [...] times a week05/31/2024How often do you attend buddhist or mormon services?Patient eazmpvfa10/26/2024Do you belong to any clubs or organizations such as buddhist groups, unions, fraternal or athletic groups, or school groups?No05/31/2024How often do you attend meetings of the clubs or organizations you belong to?Never11/26/2024Are you , , , , never , [...] housing, medical care, and heating?Not very hard 05/31/2024[facility] [place] of Occupational Health - Occupational Stress QuestionnaireAnswerDate [...] Times Moved in the Last YearNot on file11/26/2024At any time in the past 12 months, were you homeless or living in a assisted (including now)? No05/31/2024Sex and Gender InformationValueDate RecordedSex Assigned at BirthNot on fileLegal WpuFxgj4709/17/2022 6:30 PM EDTGender IdentityNot on fileSexual OrientationNot on filedocumented as of this encounter Plan of Treatment DateTypeDepartmentCare Team (Latest Contact Info)Vyxjerbtzkv85/29/2025 8:00 AM ESTOffice Visit [facility] [place] [facility] [address] [facility] [address] [place] [address] Radha Garza MD [address] [facility] [address] [place] [address] 11/30/2025 8:00 AM EDTOffice Visit [facility] [address] [place] [phone] Valerie Berry NP [address] [place] [address] documented as of this encounter Visit Diagnoses Not on filedocumented in this encounter Care Teams Team MemberRelationshipSpecialtyStart DateEnd Date Efra Meyers MD [address] [place] [address] PCP - GeneralFamily Medicine04/04/25documented as of this encounter
--- NOTE | 2025-06-08 08:00 | XR_ITS ---
[address] [address] Patient Name: NANDA REVELES MRN: [id number] date: 1975 Sex: M Assigned Patient Location: [facility] Current Patient Location: [facility] Accession/Order Number: [id number] Exam Date: 06/08/2025 08:55 Report Date: 06/08/2025 09:17 At the request of: LEXI ALLEN MD Procedure: XR chest 2V PA AND LATERAL CHEST: CLINICAL HISTORY: Preoperative clearance COMPARISON: None There is no focal parenchymal consolidation, effusion or pneumothorax. The cardiac, hilar and mediastinal silhouettes are within normal limits. There is no vascular congestion. The visualized bony thorax is intact. There are tiny endplate spurs. XR/XR chest 2V IMPRESSION: NO ACUTE CARDIOPULMONARY ABNORMALITY. Impression dictated by: Greer Summers M.D. 06/08/2025 9:17 AM Dictation Location: [place] [address] Electronically authenticated by: [id number] Y Date: 06/08/2025 09:17
--- NOTE | 2025-06-08 08:00 | ECG_ITS ---
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
[2025-06-08 09:11] LABS: Hematocrit 40.9 % (42.0-54.0); Hemoglobin 14.4 g/dL (14.0-18.0); Immature Granulocytes Abs Auto 0.02 10^3/uL (0.00-0.03); Immature Granulocytes Pct Auto 0.3 % (0.0-0.5); Lymphocytes Absolute Auto 1.5 10^3/uL (1.2-3.8); Mean Corpuscular HGB Conc 35.2 g/dL (29.9-35.2); Mean Corpuscular Hemoglobin 29.3 pg (25.9-34.0); Mean Corpuscular Volume 83.3 fL (80.0-94.0); Platelet Count 170 10^3/uL (150-450); Red Blood Count 4.91 10^6/uL (4.70-6.10); White Blood Count 6.0 10^3/uL (4.0-11.0)
[2025-06-08 09:46] LABS: Anion Gap 13.8; Blood Urea Nitrogen 18.0 mg/dL (7.0-18.0); Calcium 8.8 mg/dL (8.5-10.1); Carbon Dioxide 25.4 mmol/L (21.0-32.0); Chloride 106 mmol/L (98-107); Estimated GFR (African America >60 (>=60 mL/min/1.73m^2); Estimated GFR (Non-African Ame >60 (>=60 mL/min/1.73m^2); Glucose 150 mg/dL (74-106); Potassium 4.2 mmol/L (3.5-5.1); Sodium 141 mmol/L (136-145)
[2025-06-08 09:57] LABS: INR 1.04; Partial Thromboplastin Time 30.0 sec (22.3-36.2); Prothrombin Time 10.9 sec (9.0-11.6)
== END 2025-06-08 07:44 | disposition home or self-care (01) ==
PROVIDERS: PCP Nurse Practitioner Family; Visit Provider Otolaryngology
DX: Z01.810 Encounter for preprocedural cardiovascular examination (principal); Z01.812 Encounter for preprocedural laboratory examination; J33.9 Nasal polyp, unspecified; E11.9 Type 2 diabetes mellitus without complications
CPT/HCPCS: 36415; 71046; 80048; 85025; 85610; 85730; 93005

== ENCOUNTER 2025-06-22 08:07 | Day surgery (SDC) | payer OTHER, SELFPAY ==
[2025-06-08 08:39] VITALS: BP 146/77; PULSE 57; TEMP 36.5; O2SAT 99; BMI 39.2
--- OUTSIDE RECORDS SUMMARY | 2025-06-14 08:00 | XMS_ITS | Encounter Summary ---
Author Organization [facility] Address [address] [place] [address] Care Team Providers Care It Service Technician Name Role Phone Efra Meyers MD Primary Care Provider [phone] Reason for Referral * Consultation (Routine) - Sent for SchedulingSpecialtyDiagnoses / Procedures Referred By ContactReferred To ContactRespiratory Therapy Diagnoses Type 2 diabetes mellitus without complication, without long-term current use of insulin (HCC) Metabolic syndrome Obesity (BMI 30-39.9) Sleep apnea, unspecified Procedures OK OFFICE/OUTPATIENT NEW HIGH MDM 60 MINUTES OK SLEEP STD AIRFLOW HRT RATE&O2 SAT EFFORT UNATT Efra Meyers MD [address] [place] [address] Phone: tel: fax: [facility] [address] [address] Phone: tel: fax: Referral IDStatusReasonStart DateExpiration DateVisits RequestedVisits [id number] for Scheduling Specialty Services Required / Reason for Visit * ReasonCommentsPre-op ExamPt denies chest pain, heart palpitations or sob. Encounter Details DateTypeDepartmentCare Team (Latest Contact Info)Zegmnyooqew51/10/2025 8:00 AM ESTOffice Visit [facility] [place] [address] Efra Meyers MD [address] [place] [address] Nasal polyp (Primary Dx); Type 2 diabetes mellitus without complication, without long-term current use of insulin (HCC); Metabolic syndrome; Obesity (BMI 30-39.9) Social History Tobacco UseTypesPacks/DayYears UsedDateSmoking Tobacco: NeverPassive [...] times a week05/31/2024How often do you attend orthodoxy or mormon services?Patient zolrzhwy36/26/2024Do you belong to any clubs or organizations such as orthodoxy groups, unions, fraternal or athletic groups, or [...] housing, medical care, and heating?Not very hard 05/31/2024[facility] [place] of Occupational Health - Occupational Stress QuestionnaireAnswerDate [...] were you homeless or living in a fci (including now)? No05/31/2024Sex and Gender InformationValueDate RecordedSex Assigned at BirthNot on fileLegal HqqNszt2309/17/2022 6:30 PM EDTGender IdentityNot on fileSexual OrientationNot on filedocumented as of this encounter Last Filed Vital Signs Vital SignReadingTime TakenCommentsBlood Flovutyk241/7406/14/2025 8:02 AM EST Iwcny712606/14/2025 8:02 AM ESTTemperature--Respiratory Rate--Oxygen Saturation-- Inhaled Oxygen Concentration--Yahiim690 kg (228 lb)06/14/2025 8:02 AM ESTHeight- -Body Mass Index38.5305/24/2025 7:56 AM ESTdocumented in this encounter Progress Notes * Efra Meyers MD - 06/14/2025 8:00 AM EST Images from the original note were not included. Boy Mathew is a 49 y.o. male presents with chief complaint of Pre-op Exam (Pt denies chest pain, heart palpitations or sob. ) HPI: History of Present Illness The patient is a 49-year-old male who presents for preoperative clearance. He is scheduled for a left nasal polypectomy next , pending medical clearance. The nasal polyp was incidentally discovered approximately a month ago during an evaluation for a neck lump, which was determined to be a chain of swollen lymph nodes. He reports no respiratory distress or shortness of breath. He has been taking baby aspirin twice daily, once in the morning and once at night, but discontinued it on Thursday night. He has no known history of sleep apnea but admits to occasional snoring. He reports no familial history of cardiac conditions. His blood pressure is always high in the doctor's office. SOCIAL HISTORY He works in the [employer]. FAMILY HISTORY He reports no family history of heart problems that he is aware of. MEDICATIONS Current: Atenolol, baby aspirin. SUBJECTIVE: MEDICATIONS: Current Outpatient Medications Medication Instructions aspirin 81 MG EC tablet Every 24 hours atenolol (TENORMIN) 25 mg, Oral, 2 times daily atorvastatin (LIPITOR) 10 mg, Oral, Daily cetirizine (ZYRTEC) 10 mg, Oral, Daily PRN FreeStyle lancets Use to check blood sugars [...] min Stress: No Stress Concern Present (05/31/2024) [place] of Occupational Health - Occupational Stress Questionnaire Feeling of Stress : Not at all Social Connections: Unknown (05/31/2024) Social Connection and Isolation Panel Frequency of Communication with Friends and Family: More than three times a week Frequency of Social Gatherings with Friends and Family: More than three times a week Attends Druze Services: Patient declined Active Member of Clubs [...] OF SYMPTOMS: Review of Systems Constitutional: Negative. HENT: Positive for congestion. Eyes: Negative. Respiratory: Negative. Gastrointestinal: Negative. Genitourinary: Negative. Skin: Negative. Neurological: Negative. Psychiatric/Behavioral: Negative. All other systems reviewed and are negative. Endocrine: Negative. Allergic/Immunologic: Negative. OBJECTIVE: Results Laboratory Studies Hemoglobin A1c is 6. Testing EKG shows no abnormalities. 02/27/2025 2:27 PM 04/07/2025 11:42 AM 04/19/2025 8:08 AM 05/24/2025 7:56 AM 06/07/2025 7:53 AM 06/07/2025 8:21 AM 06/14/2025 8:02 AM Vitals BMI 38.06 kg/m2 38.84 kg/m2 38.7 kg/m2 38.7 kg/m2 38.67 kg/m2 38.53 kg/m2 BSA (m2) 2.15 m2 2.18 m2 2.18 m2 2.18 m2 2.18 m2 2.17 m2 Systolic 132 128 164 125 158 138 138 Diastolic 84 76 80 69 80 78 74 Heart Rate 58 80 64 63 64 68 SpO2 97 % Height (in) 5' 4.5 5' 4.5 5' 4.5 Weight (lb) 225.2 229.8 229 229 228.8 228 Visit Report Report Report Report Report Report Report Report Physical Exam Vitals reviewed. Constitutional: General: He is not in acute distress. Appearance: Normal appearance. HENT: Head: Normocephalic and atraumatic. Eyes: General: Right eye: No discharge. Left eye: No discharge. Cardiovascular: Rate and Rhythm: Normal rate and regular rhythm. Heart sounds: Normal heart sounds. Pulmonary: Effort: Pulmonary effort is normal. No respiratory distress. Breath sounds: Normal breath sounds. Musculoskeletal: General: Normal range of motion. Cervical back: Normal range of motion. No rigidity. Skin: General: Skin is warm and dry. Capillary Refill: Capillary refill takes less than 2 seconds. Neurological: General: No focal deficit present. Mental Status: He is alert. Psychiatric: Mood and Affect: Mood normal. @PHYSEXAM@ ASSESSMENT AND PLAN: Assessment/Plan Assessment & Plan 1. Metabolic syndrome. His hemoglobin A1c level has increased from 5.9 to 6, indicating a progression towards diabetes. Heis currently on atenolol, which should be continued until the night before surgery. He has been advised to adopt a dietary regimen consisting of a substantial breakfast, a moderate lunch, and a lightdinner, with the last meal consumed 3 to 4 hours prior to bedtime. A weight loss of 20 to 30 poundscould potentially resolve his diabetes. He has been informed about the potential benefits of medications such as Ozempic and Wegovy, pending approval. 2. Preoperative clearance. Patient is being scheduled for surgery to remove a nasal polyp from his left nostril. His EKG results are within normal limits. He has been instructed to discontinue baby aspirin one week prior to surgery. He has been medically cleared for surgery. A copy of the note will be sent to Dr. Crook. 3. Sleep apnea. He reports occasional snoring but no known diagnosis of sleep apnea. A home sleep study will be ordered to evaluate for sleep apnea. If diagnosed, the use of a CPAP or BiPAP machine may be beneficial. No follow-ups on file. [1] Allergies Allergen Reactions Other Unknown Grasses Animal Dander [2] Past Medical History: Diagnosis Date Allergic 1975 Asthma (HCC) BMI 40.0-44.9, adult ([facility]) Diabetes mellitus (HCC) 2021 DVT (deep venous thrombosis) (HCC) Glucose intolerance High density lipoprotein (HDL) less than 40 mg/dL High triglycerides HTN (hypertension) Morbid obesity (CMS-HCC) Obesity Pneumonia multiple in childhood [3] History [...] Father Tomas Mathew Heart disease Father Tomas Quincy Skin cancer Paternal Grandmother documented in this encounter Plan of Treatment DateTypeDepartmentCare Team (Latest Contact Info)Qqplmpwjtgl31/28/2026 8:00 AM EDTOffice Visit [facility] [address] [place] [address] Valerie Berry NP [address] [place], [place] [phone] NameTypePriorityAssociated DiagnosesOrder ScheduleAmbulatory referral to Sleep StudiesOutpatient ReferralRoutine Type 2 diabetes mellitus without complication, without long-term current use of insulin (HCC) Metabolic syndrome Obesity (BMI 30-39.9) Expected: 06/14/2025 (Approximate), Expires: 12/13/2025documented as of this encounter Visit Diagnoses Diagnosis Nasal polyp- Primary Unspecified nasal polyp Type 2 diabetes mellitus without complication, without long-term current use of insulin (HCC) Metabolic syndrome Dysmetabolic Syndrome X Obesity (BMI 30-39.9) documented in this encounter Care Teams Team MemberRelationshipSpecialtyStart DateEnd Date Efra Meyers MD [address] [facility] [address] PCP - GeneralFamily Medicine04/04/25documented as of this encounter
[2025-06-22] VITALS (15 sets, daily range): BP systolic 72–169; BP diastolic 56–93; PULSE 59–74; TEMP 36.4–36.8; O2SAT 89–96; BMI 38.3
--- NOTE | 2025-06-22 | OP_ITS ---
OPERATION DATE: 06/22/2025 PRIMARY CARE PHYSICIAN: Efra Meyers M.D. SURGEON: Radha Garza M.D. PREOPERATIVE DIAGNOSIS: Left nasal polyposis. POSTOPERATIVE DIAGNOSIS: Left nasal polyposis PROCEDURE: Left nasal endoscopy and removal of nasal polyps. ANESTHESIA: General endotracheal. COMPLICATIONS: None. FINDINGS: Polypoid change of the left middle turbinate and a pedunculated polyp originating from the left ostiomeatal complex. INDICATIONS: This 49-year-old man presented with marked polyposis, unresponsive to medical management. PROCEDURE: Patient identified in the holding area and taken back to the OR, where he was placed in a supine position. After induction of general endotracheal anesthesia, the table turned, the head elevated, and Afrin soaked pledgets placed in the left nose. The face was then draped in a sterile fashion and, after waiting adequate time for decongestion, the left nose was approached with the nasal endoscope, and lidocaine 1% with 1:100,000 epinephrine injected into the middle turbinate and the stalk of the pedunculated ostiomeatal complex polyp. After waiting adequate time for decongestion then, the left nose was re- approached with the nasal endoscope, and a draped, cutting ethmoid forcep was used to remove polyp from the middle turbinate, along its anterior and inferior length. This then exposed the ostiomeatal complex polyp, which was grasped with a straight ethmoid forcep and removed from the nose. There was scant bleeding; however, as the patient was awakening, there was an increase in bleeding. The nose was re-approached with the nasal endoscope, and a few areas of minor venous oozing were cauterized with suction Bovie. Several Afrin soaked patties were then placed in the nose, as the patient was awakened, to be removed in the recovery room. Patient was then awakened and taken to the recovery room in good condition. MARY
--- OUTSIDE RECORDS SUMMARY | 2025-06-22 08:10 | XMS_ITS | Encounter Summary ---
Author Organization [facility] Address [address] [place] [address] Care Team Providers Care Rail Track Maintainer Name Role Phone Efra Meyers MD Primary Care Provider [phone] Encounter Details DateTypeDepartmentCare Team (Latest Contact Info)Lqqswuxrzga54/08/2025Telephone [facility] [address] [facility] [address] [place] [address] Radha Garza MD [address] [facility] [address] [place] [address] Social History Tobacco UseTypesPacks/DayYears UsedDateSmoking Tobacco: NeverPassive [...] times a week05/31/2024How often do you attend anabaptist or congregational services?Patient smoohraw52/26/2024Do you belong to any clubs or organizations such as anabaptist groups, unions, fraternal or athletic groups, or [...] housing, medical care, and heating?Not very hard 05/31/2024[facility] [place] of Occupational Health - Occupational Stress QuestionnaireAnswerDate [...] were you homeless or living in a jail (including now)? No05/31/2024Sex and Gender InformationValueDate RecordedSex Assigned at BirthNot on fileLegal QidSdyo2709/17/2022 6:30 PM EDTGender IdentityNot on fileSexual OrientationNot on filedocumented as of this encounter Miscellaneous Notes * Telephone Encounter - Kasia Sánchez MA - 06/12/2025 3:22 PM EST Called left message to call back office * Telephone Encounter - Radha Garza MD - 06/12/2025 2:23 PM EST Refer back to PCP for pre op cardiac clearance and notify pt. R/S once received * Telephone Encounter - Greer Quintero - 06/12/2025 1:41 PM EST 06/12/25 Dyan from the [facility] called and said that this patient needs cardiac clearance per anesthesiologist. Pt does not have a equity analyst. Surgery is scheduled for 06/22 documented in this encounter Plan of Treatment DateTypeDepartmentCare Team (Latest Contact Info)Ooxfheijfpq97/28/2026 8:00 AM EDTOffice Visit [facility] [address] [place] [phone] PumpValerie, ROUTE RIDER [address] [place] [address] documented as of this encounter Visit Diagnoses Not on filedocumented in this encounter Care Teams Team MemberRelationshipSpecialtyStart DateEnd Date Efra Meyers MD [address] [place], [place] [id number] PCP - GeneralFamily Medicine04/04/25documented as of this encounter
--- OUTSIDE RECORDS SUMMARY | 2025-06-22 08:10 | XMS_ITS | Clinical Summary ---
Author Organization [facility] tem Address [id number] [address] [place] [address] Care Team Providers Care Protective Signal Operator Name Role Phone Yessica Keen MD Primary Care Provider [phone] Allergies Active AllergyReactionsCriticalityNoted DateCommentsNo Known Drug Allergies 07/03/2016 Medications MedicationSigDispense QuantityRefillsLast FilledStart DateEnd DateStatus atenolol (TENORMIN) 25 mg tablet Take 25 mg by mouth 2 (two) times a day.05/25/2016Active XARELTO tablet 20 mg.06/12/2016Active Social History Tobacco UseTypesPacks/DayYears UsedDateSmoking Tobacco: NeverSmokeless Tobacco: NeverAlcohol UseStandard Drinks/WeekCommentsNo0 (1 standard drink = 0.6 oz pure alcohol)ChildcareAnswerDate UtuetorpXxlukwxzjOepvhhz89/12/2019EmploymentAnswer Date KghdodtbAgdtceyibgZvprenh56/12/2019Purpose - LifeAnswerDate RecordedPurpose and direction in qolbOehsqba90/11/2021Sex and Gender InformationValueDate RecordedSex Assigned at BirthNot on fileLegal XabGhaq9702/08/2015 11:35 AM EDT Gender IdentityNot on fileSexual OrientationNot on file Last Filed Vital Signs Vital SignReadingTime TakenCommentsBlood Otypgkru251/9807/03/2016 2:01 PM EST Jwwma431007/03/2016 2:01 PM ESTTemperature--Respiratory Sdix358609/03/2015 2:01 PM ESTOxygen Saturation--Inhaled Oxygen Concentration--Sftttp062.6 kg (235 lb) 07/03/2016 2:01 PM ANZQalqds605.6 cm (5' 4 )07/03/2016 2:01 PM ESTBody Mass Index40.34109/03/2015 2:01 PM EST Plan of Treatment Health MaintenanceDue DateLast DoneCommentsDepression Moehxxani70/14/1986Tobacco Rywnddakb26/14/1986Adult BMI Idmlvsmtv73/14/1992DTaP,Tdap and Td Vaccines (1 - Tdap)1992Zoster (Shingles) Vaccine (1 of 2)10/18/2023Influenza Vaccine 03/06/2025 Medical Devices Not on file Insurance Care Teams Team MemberRelationshipSpecialtyStart DateEnd Yessica Keen MD [address] [place] [address] PCP - GeneralFamily Ijbkskia57/19/16
--- OUTSIDE RECORDS SUMMARY | 2025-06-22 08:10 | XMS_ITS | Encounter Summary ---
Author Organization [facility] Address [address] [place] [address] Care Team Providers Care Chemical Plant Operator Name Role Phone Efra Meyers MD Primary Care Provider [phone] Encounter Details DateTypeDepartmentCare Team (Latest Contact Info)Qtexlcevpgp05/10/2025amboo flowsheet [facility] [address] [place] [address] Efra Meyers MD [address] [place], [place] [address] Social History Tobacco UseTypesPacks/DayYears UsedDateSmoking Tobacco: NeverPassive [...] times a week05/31/2024How often do you attend evangelical or sabianism services?Patient irkhthth58/26/2024Do you belong to any clubs or organizations such as evangelical groups, unions, fraternal or athletic groups, or [...] housing, medical care, and heating?Not very hard 05/31/2024[facility] [place] of Occupational Health - Occupational Stress QuestionnaireAnswerDate [...] InformationValueDate RecordedSex Assigned at BirthNot on fileLegal MopLueb7109/17/2022 6:30 PM EDTGender IdentityNot on fileSexual OrientationNot on filedocumented as of this encounter Plan of Treatment DateTypeDepartmentCare Team (Latest Contact Info)Bxohbagusnt52/28/2026 8:00 AM EDTOffice Visit [facility] [address] [place] [address] Valerie Berry NP [address] [place], [place] [phone] documented as of this encounter Visit Diagnoses Not on filedocumented in this encounter Care Teams Team MemberRelationshipSpecialtyStart DateEnd Date Efra Meyers MD [address] [place], [place] [phone] PCP - GeneralFamily Medicine04/04/25documented as of this encounter
--- OUTSIDE RECORDS SUMMARY | 2025-06-22 08:10 | XMS_ITS | Encounter Summary ---
Author Organization [facility] Address [address] [place] [address] Care Team Providers Care Psychotherapist Social Worker Name Role Phone Efra Meyers MD Primary Care Provider [phone] Encounter Details DateTypeDepartmentCare Team (Latest Contact Info)Yzmoxpprklp37/04/2025linisync Result Encounter [facility] External Department Unsolicited Lexi Garza MD [address] [facility] [address] [place] [address] Social History Tobacco UseTypesPacks/DayYears UsedDateSmoking Tobacco: NeverPassive [...] times a week05/31/2024How often do you attend sikh or catholic services?Patient incwezvb70/26/2024Do you belong to any clubs or organizations such as sikh groups, unions, fraternal or athletic groups, or school groups?No05/31/2024How often do you attend meetings of the clubs or organizations you belong to?Never4Are you , , , , never , [...] housing, medical care, and heating?Not very hard 05/31/2024[facility] [place] of Occupational Health - Occupational Stress QuestionnaireAnswerDate [...] were you homeless or living in a halfway (including now)? No05/31/2024Sex and Gender InformationValueDate RecordedSex Assigned at BirthNot on fileLegal CzsHzwj2309/17/2022 6:30 PM EDTGender IdentityNot on fileSexual OrientationNot on filedocumented as of this encounter Plan of Treatment DateTypeDepartmentCare Team (Latest Contact Info)Oqjugiwqjys78/28/2026 8:00 AM EDTOffice Visit [facility] [address] [facility] [place] [address] Pump, Valerie, MARKETING FINANCIAL ANALYST [address] [place] [address] documented as of this encounter Procedures Procedure NamePriorityDate/TimeAssociated DiagnosisCommentsXR CHEST 2V108/09/2024 9:17 AM EST SRMCOH PROTHROMBIN TIME INR W/O NWAKBftalac05/04/2025 8:45 AM EST [facility] EMIPHxmyhlw69/04/2025 8:45 AM EST ALL CBC WITH AUTO OGDVCgtmoki87/04/2025 8:45 AM EST ALL BASIC METABOLIC KFJFJQljzmtm54/04/2025 8:45 AM EST documented in this encounter Results * XR CHEST 2V (06/08/2025 9:17 AM EST)Anatomical RegionLateralityModalityOther Specimen (Source)Anatomical Location / LateralityCollection Method / Volume Collection TimeReceived Time06/08/2025 9:17 AM EST Narrative 06/08/2025 9:19 AM EST [facility] ?[address] ? [place] [address] ?XRay Report ? Signed ? Patient: ANUSHKA,BOY ?MR#: [id number] ?? : 1975 ?Acct:[id number] ?? Age/Sex: 49 / M ?ADM Date: 06/08/25 ?? Loc: PST ? Attending Dr: Lexi Garza M.D. ? Ordering Physician: Lexi Garza M.D. ?? Date of Service: 06/08/25 ?? Procedure(s): XR chest 2V ?? Accession Number(s): [id number] ? cc: Valerie Berry NP; Lexi Garza M.D. ? [facility] ? [address] ? [place] [address] ? Patient Name: ?? BOY ??ANUSHKA ? MRN: [facility]:[id number] ? date: 1975 ?Sex: M ?? Assigned Patient Location: SURGOUT ?? Current Patient Location: SURGOUT ?? Accession/Order Number: [id number] ?? Exam Date: 06/08/2025 ??08:55 ?Report Date: 06/08/2025 ??09:17 ? At the request of: ?? LEXI ??TIFFANY ? Procedure: ??XR chest 2V ? PA AND LATERAL CHEST: ? CLINICAL HISTORY: Preoperative clearance ? COMPARISON: None ? There is no focal parenchymal consolidation, effusion or pneumothorax. ?? The ?? cardiac, hilar and mediastinal silhouettes are within normal limits. ?? There ?? is no vascular congestion. ?? The visualized bony thorax is intact. ?? There are ?? tiny endplate spurs. ? XR/XR chest 2V ?? IMPRESSION: ? NO ACUTE CARDIOPULMONARY ABNORMALITY. ? Impression dictated by: Greer Summers M.D. ??06/08/2025 9:17 AM ? Dictation Location: [facility] ? Electronically authenticated by: [id number] ??Y ?? Date: 06/08/2025 ??09:17 ? Dictated By: ?Greer Summers M.D. ? Signed By: ?06/08/25 0919 ? DD/ 6 ? TD/TT: ? Key Maker: Procedure Note Radiology, Radiologist, - 06/08/2025 [place] [address] XRay Report Signed Patient: ENZO REVELES#: [id number] : 1975Acct:[id number] Age/Sex: 49 / MADM Date: 06/08/25 Loc: PST Attending Dr: Lexi Gazra M.D. Ordering Physician: Lexi Garza M.D. Date of Service: 06/08/25 Procedure(s): XR chest 2V Accession Number(s): [id number] cc: Valerie Berry MARKETING FINANCIAL ANALYST; Lexi Garza M.D. [place] [address] Patient Name: BOY REVELES MRN: [facility]:[id number] date: 1975 Sex: M Assigned Patient Location: SURGOUT Current Patient Location: SURGOUT Accession/Order Number: [id number] Exam Date: 06/08/2025 08:55 Report Date: 06/08/2025 09:17 At the request of: LEXI GARZA MD Procedure: XR chest 2V PA AND LATERAL CHEST: CLINICAL HISTORY: Preoperative clearance COMPARISON: None There is no focal parenchymal consolidation, effusion or pneumothorax.The cardiac, hilar and mediastinal silhouettes are within normal limits.There is no vascular congestion. The visualized bony thorax is intact. Thereare tiny endplate spurs. XR/XR chest 2V IMPRESSION: NO ACUTE CARDIOPULMONARY ABNORMALITY. Impression dictated by: Greer Summers M.D. 06/08/2025 9:17 AM Dictation Location: [place] [address] Electronically authenticated by: [id number] Y Date: 9:17 Dictated By: Greer Summers M.D. Signed By:06/08/25918 DD/ 6 TD/TT: Key Maker: Authorizing ProviderResult TypeResult StatusHilary H Timmis MDCLINISYNC IMAGING Final Result * [facility] APTT (06/08/2025 8:45 AM EST)ComponentValueRef RangeTest MethodAnalysis TimePerformed AtPathologist SignaturePARTIAL THROMBOPLASTIN TIME30.022.3 - 36.2 secTBHSpecimen (Source)Anatomical Location / LateralityCollection Method / VolumeCollection TimeReceived Time06/08/2025 8:45 AM EST06/08/2025 8:50 AM EST Narrative CLINISYNC - 06/08/2025 10:00 AM EST Authorizing ProviderResult TypeResult StatusHilary H Timmis MDCLINISYNCFinal ResultPerforming OrganizationAddressCity/State/ZIP CodePhone Number [facility]YATRI[facility] * [facility] PROTHROMBIN TIME INR W/O COUM (06/08/2025 8:45 AM EST)ComponentValueRef RangeTest MethodAnalysis TimePerformed AtPathologist SignaturePROTHROMBIN TIME 10.99.0 - 11.6 secTBHTB INR1.04TBHComment: DESIRED INR: 2.0-3.0 CONDITIONS NOT LISTED BELOW 2.5-3.5 FOR PROSTHETIC HEART VALVE REPLACEMENT 2.5-3.5 RECURRENT THROMBOSIS Specimen (Source)Anatomical Location / LateralityCollection Method / Volume Collection TimeReceived Time06/08/2025 8:45 AM EST06/08/2025 8:50 AM EST Narrative CLIN[facility]YNC - 06/08/2025 10:00 AM EST Authorizing ProviderResult TypeResult StatusHilary H Timmis MDCLINISYNCFinal ResultPerforming OrganizationAddressCity/State/ZIP CodePhone Number [facility] * (ABNORMAL) ALL BASIC METABOLIC PANEL (06/08/2025 8:45 AM EST)ComponentValueRef RangeTest MethodAnalysis TimePerformed AtPathologist CxhuhjdmtYVQNQZ661852 - 145 mmol/LTBHPOTASSIUM4.23.5 - 5.1 mmol/OLRJEHEQIHNU75286 - 107 mmol/LTBH CAR[place] ZVOIFDT64.421.0 - 32.0 mmol/LTBHANION GAP13.4VQDGIVQVAA685(H)74 - 106 mg/dLTBHBLOOD UREA IFMJFIWV60.07.0 - 18.0 mg/dLTBHCREATININE0.940.70 - 1.30 mg/dLTBHTBH EGFR-AF LITHUANIAN>60>=60 mL/min/1.73m 2TBHTBH EGFR-NON AF LITHUANIAN >60>=60 mL/min/1.73m 2TBHBUN CREATININE RATIO19.0DIBTUTZXIV9.88.5 - 10.1 mg/dL TBHSpecimen (Source)Anatomical Location / LateralityCollection Method / Volume Collection TimeReceived Time06/08/2025 8:45 AM EST06/08/2025 8:50 AM EST Narrative [facility]NC - 06/08/2025 9:48 AM EST Authorizing ProviderResult TypeResult StatusHilary H Timmis MDCLINISYNCFinal ResultPerforming OrganizationAddressCity/State/ZIP CodePhone Number CLINISYNC [facility] * (ABNORMAL) ALL CBC WITH AUTO DIFF (06/08/2025 8:45 AM EST)ComponentValueRef RangeTest MethodAnalysis TimePerformed AtPathologist SignatureTBH WBC6.04.0 - 11.0 10 3/uLTBHTBH RBC4.914.70 - 6.10 10 6/uLTBHTBH HGB14.414.0 - 18.0 g/dLTBH [facility] HCT40.9(L)42.0 - 54.0 %TBHTBH MCV83.380.0 - 94.0 fLTBHTBH MCH29.325.9 - 34.0 pgTBHTBH MCHC35.229.9 - 35.2 g/dLTBHTBH RDW13.111.0 - 15.0 %TBHTBH HFQ819 150 - 450 10 3/uLTBHTBH MPV10.19.5 - 13.5 fLTBHNEUTROPHILS PERCENT AUTO64.7 43.0 - 75.0 %TBHLYMPHOCYTES PERCENT AUTO24.520.5 - 60.0 %TBHMONOCYTES PERCENT AUTO7.21.7 - 12.0 %TBHTBH EO %2.80.9 - 7.0 %TBHBASOPHILS PERCENT AUTO0.50.2 - 2.0 %TBHIMMATURE GRANULOCYTES PCT AUTO0.30.0 - 0.5 %TBHNEUTROPHILS ABSOLUTE AUTO3.91.4 - 6.5 10 3/uLTBHLYMPHOCYTES ABSOLUTE AUTO1.51.2 - 3.8 10 3/uLTBH MONOCYTES ABSOLUTE AUTO0.40.3 - 0.8 10 3/uLTBHTBH EO #0.20.0 - 0.7 10 3/uLTBH BASOPHILS ABSOLUTE AUTO0.00.0 - 0.1 10 3/uLTBHIMMATURE GRANULOCYTES ABS AUTO 0.020.00 - 0.03 10 3/uLTBHSpecimen (Source)Anatomical Location / Laterality Collection Method / VolumeCollection TimeReceived Time06/08/2025 8:45 AM EST 06/08/2025 8:50 AM EST Narrative [facility]IN[facility]NC - 06/08/2025 9:46 AM EST Authorizing ProviderResult TypeResult StatusHilary H Timmis MDCLINISYNCFinal ResultPerforming OrganizationAddressCity/State/ZIP CodePhone Number CLINIS[facility]NC [facility] documented in this encounter Visit Diagnoses Not on filedocumented in this encounter Care Teams Team MemberRelationshipSpecialtyStart DateEnd Date Efra Meyers MD [address] [place] [address] PCP - GeneralFamily Medicine04/04/25documented as of this encounter
--- OUTSIDE RECORDS SUMMARY | 2025-06-22 08:10 | XMS_ITS | Encounter Summary ---
Author Organization [facility] Address [address] [place] [address] Care Team Providers Care Type Proof Reproducer Name Role Phone Efra Meyers MD Primary Care Provider [phone] Encounter Details DateTypeDepartmentCare Team (Latest Contact Info)Fsrkryzxeap11/09/2025Telephone [facility] [address] [place] [address] Efra Meyers MD [address] [place], [place] [phone] Social History Tobacco UseTypesPacks/DayYears UsedDateSmoking Tobacco: NeverPassive [...] times a week05/31/2024How often do you attend mandaeism or sikh services?Patient clulwrts56/26/2024Do you belong to any clubs or organizations such as mandaeism groups, unions, fraternal or athletic groups, or [...] housing, medical care, and heating?Not very hard 05/31/2024[facility] [place] of Occupational Health - Occupational Stress QuestionnaireAnswerDate [...] were you homeless or living in a fdc (including now)? No05/31/2024Sex and Gender InformationValueDate RecordedSex Assigned at BirthNot on fileLegal QdoYhyu4009/17/2022 6:30 PM EDTGender IdentityNot on fileSexual OrientationNot on filedocumented as of this encounter Miscellaneous Notes * Telephone Encounter - ANDRE MEJIA - 06/14/2025 8:50 AM EST Note faxed to Dr. Garza office. documented in this encounter Plan of Treatment DateTypeDepartmentCare Team (Latest Contact Info)Fycsgollpte83/28/2026 8:00 AM EDTOffice Visit [facility] [address] [place] [address] Valerie Berry NP [address] [facility] [place] [address] documented as of this encounter Visit Diagnoses Not on filedocumented in this encounter Care Teams Team MemberRelationshipSpecialtyStart DateEnd Date Efra Meyers MD [address] [facility] [address] [place], [place] [address] PCP - GeneralFamily Medicine04/04/25documented as of this encounter
--- OUTSIDE RECORDS SUMMARY | 2025-06-22 08:10 | XMS_ITS | Encounter Summary ---
Author Organization [facility] Address [address] [place] [address] Care Team Providers Care Salesperson Women'S Hats Name Role Phone Efra Meyers MD Primary Care Provider [phone] Encounter Details DateTypeDepartmentCare Team (Latest Contact Info)Gwvhivkxkvq77/11/2025Orders Only [facility] [address] [place] [address] Efra Meyers MD [address] [place], [place] [phone] Social History Tobacco UseTypesPacks/DayYears UsedDateSmoking Tobacco: NeverPassive [...] times a week05/31/2024How often do you attend episcopalian or tenriism services?Patient iczeoybr03/26/2024Do you belong to any clubs or organizations such as episcopalian groups, unions, fraternal or athletic groups, or [...] housing, medical care, and heating?Not very hard 05/31/2024[facility] [place] of Occupational Health - Occupational Stress QuestionnaireAnswerDate [...] InformationValueDate RecordedSex Assigned at BirthNot on fileLegal QihJcrh7209/17/2022 6:30 PM EDTGender IdentityNot on fileSexual OrientationNot on filedocumented as of this encounter Plan of Treatment DateTypeDepartmentCare Team (Latest Contact Info)Enmzjpgedpc85/28/2026 8:00 AM EDTOffice Visit [facility] [address] [place] [address] Valerie Berry NP [address] [place], [place] [address] documented as of this encounter Visit Diagnoses Not on filedocumented in this encounter Care Teams Team MemberRelationshipSpecialtyStart DateEnd Date Efra Meyers MD [address] [facility] [place], [place] [address] PCP - GeneralFamily Medicine04/04/25documented as of this encounter
--- OUTSIDE RECORDS SUMMARY | 2025-06-22 08:10 | XMS_ITS | Encounter Summary ---
Author Organization [facility] Address [address] [place] [address] Care Team Providers Care Teaching Music Lessons Name Role Phone Efra Meyers MD Primary Care Provider [phone] Encounter Details DateTypeDepartmentCare Team (Latest Contact Info)Covsmhddxzk08/04/2025Results Follow-Up [facility] [address] [place] [address] Valerie Berry NP [address] [place], [place] [address] Hemoglobin A1c, Microalbumin / creatinine, urine ratio, Lipid panel, Comprehensive metabolic panel Social History Tobacco UseTypesPacks/DayYears UsedDateSmoking Tobacco: NeverPassive [...] times a week05/31/2024How often do you attend mormon or gnosticist services?Patient fvimwhlj98/26/2024Do you belong to any clubs or organizations such as mormon groups, unions, fraternal or athletic groups, or school groups?No11/26/2024How often do you attend meetings of the [...] housing, medical care, and heating?Not very hard 05/31/2024[facility] [place] of Occupational Health - Occupational Stress QuestionnaireAnswerDate [...] were you homeless or living in a intermediate (including now)? No05/31/2024Sex and Gender InformationValueDate RecordedSex Assigned at BirthNot on fileLegal UpuAiqq1809/17/2022 6:30 PM EDTGender IdentityNot on fileSexual OrientationNot on filedocumented as of this encounter Miscellaneous Notes * Telephone Encounter - Aman Collins - 06/08/2025 1:07 PM EST Results given * Telephone Encounter - Jolie Orourke MA - 06/08/2025 11:20 AM EST Lmom, please relay msg about labs. * Telephone Encounter - Jolie Orourke MA - 06/08/2025 11:20 AM EST ----- Message from Valerie Berry sent at 06/08/2025 11:10 AM EST ----- A1c is up a little to 6 so really watch the diet. Cholesterol is ok, but his good is low and his triglycerides are elevated so increase proteins and fibers. Limit sweets, baked goods, and pastas. Everything else looks good. ----- Message ----- From: Kalpesh Reddy Lab Results In Sent: 06/08/2025 1:50 AM EST To: Valerie Berry NP * Result Encounter Note - Valerie Berry NP - 06/08/2025 11:10 AM EST A1c is up a little to 6 so really watch the diet. Cholesterol is ok, but his good is low and his triglycerides are elevated so increase proteins and fibers. Limit sweets, baked goods, and pastas. Everything else looks good. documented in this encounter Plan of Treatment DateTypeDepartmentCare Team (Latest Contact Info)Kzfcjvrgxxt35/28/2026 8:00 AM EDTOffice Visit [facility] [address] [place] [address] Valerie Berry NP [address] [place], [place] [address] documented as of this encounter Visit Diagnoses Not on filedocumented in this encounter Care Teams Team MemberRelationshipSpecialtyStart DateEnd Date Efra Meyers MD [address] [facility] [place] [address] PCP - GeneralFamily Medicine04/04/25documented as of this encounter
--- OUTSIDE RECORDS SUMMARY | 2025-06-22 08:10 | XMS_ITS | Encounter Summary ---
Author Organization [facility] Address [address] [place] [address] Care Team Providers Care Research Hydrologist Name Role Phone Efra Meyers MD Primary Care Provider [phone] Encounter Details DateTypeDepartmentCare Team (Latest Contact Info)Jbeoemrmovl21/04/2025linisync Result Encounter [facility] Unsolicited Lexi Garza MD [address] [facility] [address] [place] [address] Social History Tobacco UseTypesPacks/DayYears UsedDateSmoking [...] times a week05/31/2024How often do you attend denominational or quaker services?Patient yesbarlb02/26/2024Do you belong to any clubs or organizations such as denominational groups, unions, fraternal or athletic groups, or [...] heating?Not very hard 05/31/2024[facility] [place] of Occupational Health - Occupational Stress QuestionnaireAnswerDate [...] InformationValueDate RecordedSex Assigned at BirthNot on fileLegal PjdJshl4309/17/2022 6:30 PM EDTGender IdentityNot on fileSexual OrientationNot on filedocumented as of this encounter Plan of Treatment DateTypeDepartmentCare Team (Latest Contact Info)Wbcifdhqflf48/28/2026 8:00 AM EDTOffice Visit [facility] [address] [facility] [address] PumpValerie, SEASONER HAND [address] [facility], [place] [id number] documented as of this encounter Procedures Procedure NamePriorityDate/TimeAssociated DiagnosisCommentsECG 12-LEAD06/08/2025 7:40 AM EST documented in this encounter Results * ECG 12-LEAD (06/08/2025 7:40 AM EST)Anatomical RegionLateralityModalityOther Specimen (Source)Anatomical Location / LateralityCollection Method / Volume Collection TimeReceived Time06/08/2025 7:40 AM EST Narrative 06/08/2025 11:21 AM EST [facility] ?[address] ? [place] [address] ? Electrocardiograph Report ? Signed ? Patient: ANUSHKA,BOY ?MR#: [id number] ?? : 1975 ?Acct:[id number] ?? Age/Sex: 49 / M ?ADM Date: 06/08/25 ?? Loc: PST ? Attending Dr: Lexi Garza M.D. ? Ordering Physician: Lexi Garza M.D. ?? Date of Service: 06/08/25 ?? Procedure(s): ECG 12 lead ?? Accession Number(s): [id number] ? cc: ?[facility] ? Test Date: ?2025-06-08 ?? Pat Name: ? BOY ANUSHKA ? Department: ? Room: ? - ?? Gender: ? Male ? Surplus Property Disposal Agent: ? : ?1975 ? Requested By: LEXI GARZA ?? Order Number: [id number] ?Reading MD: ?? SAM SHAHZAD ? Measurements ?? Intervals ?[employer] ? Rate: ? 57 ? P: ?50 ?? GA: ? 168 ?QRS: ?29 ?? QRSD: ? 110 ?T: ?15 ?? QT: ? 400 ? QTc: ?391 ? Interpretive Statements ?? SINUS BRADYCARDIA ?? 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 OLD ?? No previous ECG available for comparison ?? Electronically Signed On 06-08-2025 11:20:45 EST by SAM REYES ? Dictated By: ?Sam Reyes M.D. ? Signed By: ?12/04/25 1121 ? DD/ 0740 ? TD/TT: ? Lead Network Engineer: Procedure Note Radiology, Radiologist, - 06/08/[address] [address] Electrocardiograph Report Signed Patient: BOY REVELESMR#: [id number] : 1975Acct:[id number] Age/Sex: 49 / MADM Date: 06/08/25 Loc: PST Attending Dr: Lexi Garza M.D. Ordering Physician: Lexi Garza M.D. 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 Signed By:06/08/25 1121 DD/ 0740 TD/TT: Lead Network Engineer: Authorizing ProviderResult TypeResult StatusHilary H Kayla MDCLINISYNC IMAGING Final Result documented in this encounter Visit Diagnoses Not on filedocumented in this encounter Care Teams Team MemberRelationshipSpecialtyStart DateEnd Date Efra Meyers MD [address] [place] [address] PCP - GeneralFamily Medicine04/04/25documented as of this encounter
--- OUTSIDE RECORDS SUMMARY | 2025-06-22 08:10 | XMS_ITS | Encounter Summary ---
Author Organization [facility] Address [address] [place] [address] Care Team Providers Care College Advisor Name Role Phone Efra Meyers MD Primary Care Provider [phone] Encounter Details DateTypeDepartmentCare Team (Latest Contact Info)Dzpsqsveeyr51/09/2025Tele[address] [facility] [address] [facility] [address] [place] [address] Radha Garza MD [address] [facility] [address] [place] [address] Social History Tobacco UseTypesPacks/DayYears UsedDateSmoking Tobacco: NeverPassive [...] times a week05/31/2024How often do you attend confucianism or shinto services?Patient yqieqtxt74/26/2024Do you belong to any clubs or organizations such as confucianism groups, unions, fraternal or athletic groups, or [...] housing, medical care, and heating?Not very hard 05/31/2024[facility] [place] of Occupational Health - Occupational Stress QuestionnaireAnswerDate [...] InformationValueDate RecordedSex Assigned at BirthNot on fileLegal AboWhkl8709/17/2022 6:30 PM EDTGender IdentityNot on fileSexual OrientationNot on filedocumented as of this encounter Miscellaneous Notes * Telephone Encounter - Greer Quintero - 06/13/2025 1:44 PM EST Pt cld and asked for velasquez to let her know that he has an appt with his pcp tomorrow 06/14 @ 8:00 documented in this encounter Plan of Treatment DateTypeDepartmentCare Team (Latest Contact Info)Ymsnwpzutah13/28/2026 8:00 AM EDTOffice Visit [facility] [address] [place] [phone] Valerie Berry NP [address] [place] [address] documented as of this encounter Visit Diagnoses Not on filedocumented in this encounter Care Teams Team MemberRelationshipSpecialtyStart DateEnd Date Efra Meyers MD [address] [facility] [place], [place] [phone] PCP - GeneralFamily Medicine04/04/25documented as of this encounter
--- OUTSIDE RECORDS SUMMARY | 2025-06-22 08:10 | XMS_ITS | Encounter Summary ---
Author Organization [facility] Address [address] [place] [address] Care Team Providers Care Tavern Operator Name Role Phone Efra Meyers MD Primary Care Provider [phone] Encounter Details DateTypeDepartmentCare Team (Latest Contact Info)Kjleugcofwh70/15/2025Refill [facility] [address] [place] [address] Efra Meyers MD [address] [place], [place] [phone] Hyperlipidemia, unspecified hyperlipidemia type Social History Tobacco UseTypesPacks/DayYears UsedDateSmoking Tobacco: NeverPassive [...] times a week05/31/2024How often do you attend baptist or jewish services?Patient sfqkpdel72/26/2024Do you belong to any clubs or organizations such as baptist groups, unions, fraternal or athletic groups, or [...] housing, medical care, and heating?Not very hard 05/31/2024Fin[facility] [place] of Occupational Health - Occupational Stress QuestionnaireAnswerDate [...] InformationValueDate RecordedSex Assigned at BirthNot on fileLegal XwuFxwt9109/17/2022 6:30 PM EDTGender IdentityNot on fileSexual OrientationNot on filedocumented as of this encounter Miscellaneous Notes * Telephone Encounter - Gypsy Neff MA - 06/19/2025 2:58 PM EST Rx sent * Telephone Encounter - Anabel Keen - 06/19/2025 8:59 AM EST Patient is requesting atorvastatin #90 plus [facility]. documented in this encounter Plan of Treatment DateTypeDepartmentCare Team (Latest Contact Info)Sytqzzrixmq89/28/2026 8:00 AM EDTOffice Visit [facility] [address] [place] [address] Valerie Berry NP [address] [place], [place] [phone] documented as of this encounter Visit Diagnoses Diagnosis Hyperlipidemia, unspecified hyperlipidemia type documented in this encounter Care Teams Team MemberRelationshipSpecialtyStart DateEnd Date Efra Meyers MD [address] [place], [place] [phone] PCP - GeneralFamily Medicine04/04/25documented as of this encounter
--- OUTSIDE RECORDS SUMMARY | 2025-06-22 08:10 | XMS_ITS | Clinical Summary ---
Author Organization [facility] Address [address] [place] [address] Care Team Providers Care Independent Crop Consultant Name Role Phone Efra Meyers MD Primary Care Provider [phone] Allergies Active AllergyReactionsCriticalityNoted DvmzNlfwnjndIhsylZzyjxdh98/16/2023 Grasses Animal Dander Medications MedicationSigDispense QuantityRefillsLast FilledStart [...] 1 tablet (10 mg) by mouth Daily 90 tablet 5Active amoxicillin-clavulanate (Augmentin) 875-125 MG tablet Indications:Nasal polypTake 1 tablet (875 mg) by mouth in the morning and 1 tablet (875 mg) before bedtime. 60 tablet /Discontinued(Therapy completed) fluticasone (Flonase) 50 MCG/ACT nasal spray Indications:Nasal polypTwo sprays on left side twice daily. Shake gently. Before first use, prime pump. After use, clean tip and replace cap. 48 g Discontinued(Therapy completed) atorvastatin (Lipitor) 10 MG tablet Indications:Hyperlipidemia, unspecified hyperlipidemia typeTake 1 tablet (10 mg) by mouth Daily 30 tablet Discontinued(Reorder) Active Problems ProblemNoted DateDiagnosed DateType 2 diabetes mellitus without complication, without long-term current use of fjxewwe6505/21/2023Essential hypertension 05/21/2023High density lipoprotein (HDL) less than 40 mg/dL05/21/2023Metabolic oeumzeea90/16/2023Obesity (BMI 30-39.9)05/21/2023High blood triglycerides 05/21/2023 Encounters DateTypeDepartmentCare NttcDmtjkfdpywx84/15/2025Refill [place] [place] [address] Efra Meyers MD Hyperlipidemia, unspecified hyperlipidemia type06/15/2025Orders Only [address] [address] Efra Meyers MD 06/14/2025 8:00 AM ESTOffice Visit [address] [address] Efra Meyers MD Nasal polyp (Primary Dx); Type 2 diabetes mellitus without complication, without long-term current use of insulin ([facility]); Metabolic syndrome; Obesity (BMI 30-39.9)06/14/2025amboo flowsheet [facility] [address] [facility] [place] [address] Efra Meyers MD 06/14/20257133Rwmdco82/09/2025Telephone [facility] [address] [facility] [address] [place] [address] Radha Allen MD 06/13/2025[facility]phone [facility] [address] [facility] [place] [address] Efra Meyers MD 06/12/2025Telephone [facility] [address] [facility] [address] [place] [address] Radha Allen MD 06/08/2025linisync Result Encounter NOMS External Department Unsolicited Radha Allen MD 06/08/2025Results Follow-Up [facility] [address] [place] [phone] Pump, Valerie, CATALOG LIBRARY ASSISTANT Hemoglobin A1c, Microalbumin / creatinine, urine ratio, Lipid panel, Comprehensive metabolic panel06/08/2025linisync Result Encounter NOMS External Department Unsolicited Radha Allen MD 06/07/2025 8:00 AM ESTOffice Visit [facility] [address] [facility] [place] [address] Pump, Valerie, CATALOG LIBRARY ASSISTANT Essential hypertension (Primary Dx); Type 2 diabetes mellitus without complication, without long-term current use of insulin (HCC)06/07/2025amboo flowsheet [facility] [address] [facility] [place] [address] Pump, Valerie, CATALOG LIBRARY ASSISTANT 06/07/20253978Ffiscy14/19/2025 8:10 AM ESTOffice Visit [facility] [address] [facility] [address] [place] [address] Radha Allen MD LAD (lymphadenopathy) of right cervical region (Primary Dx); Nasal polyp11/19/2025Bamboo flowsheet [facility] [address] [facility] [address] [place] [address] Radha Allen MD 05/24/20251747Tdiske80/10/2025 11:45 AM ESTAncillary Procedure [facility] [address] [facility] [address] [place] [address] LAD (lymphadenopathy) of right cervical edhyjo8605/15/2025 11:30 AM ESTAncillary Procedure [facility] [address] [facility] [address] [place] [address] LAD (lymphadenopathy) of right cervical dpvbzh2205/15/20258984Tfxsim03/24/2025Refill [facility] [address] [place] [facility] [place] [address] Efra Meyers MD Hyperlipidemia, unspecified hyperlipidemia type04/19/2025 8:10 AM EDTOffice Visit [facility] [address] [facility] [address] [place] [address] Radha Allen MD LAD (lymphadenopathy) of right cervical region (Primary Dx); Nasal polyp; Type 2 diabetes mellitus without complication, without long-term current use of insulin ([facility])04/19/2025amb flowsheet [facility] [address] [facility] [address] [place] [address] Radha Allen MD 04/19/20258455Dqznog73/13/2025Telephone [facility] [address] [place] [address] Pump, Valerie, CATALOG LIBRARY ASSISTANT 04/14/2025Results Follow-Up [facility] [address] [place] [facility] [place] [address] Pump, Valerie, CATALOG LIBRARY ASSISTANT CT soft tissue neck w IV kchxekgu60/10/2025Telephone [facility] [address] [place] [facility] [place] [address] Efra Meyers MD 04/12/2025 10:00 AM EDTAncillary Procedure [facility] [address] [facility] [address] [facility] [place] [address] Neck mass04/12/20251115Vstfut48/06/2025Orders Only [facility] [address] [facility] [place] [address] Pump, Valerie, CATALOG LIBRARY ASSISTANT Neck mass (Primary Dx)04/10/2025Results Follow-Up [facility] [address] [facility] [place] [address] Pump, Valerie, CATALOG LIBRARY ASSISTANT US head neck soft vrmiof6504/07/2025 12:00 PM EDTAncillary Procedure [facility] [address] [facility] [address] [place] [address] Palpable mass of neck04/07/2025 11:30 AM EDTOffice Visit [facility] [address] [facility] [place] [address] Pump, Valerie, CATALOG LIBRARY ASSISTANT Palpable mass of neck (Primary Dx); Essential qeayggqralnj22/03/2025amboo flowsheet [facility] [address] [facility] [place] [address] Pump, Valerie, CATALOG LIBRARY ASSISTANT 04/07/20255342Zhdakj90/30/2025Refill [facility] [address] [facility] [place] [address] Pump, Valerie, CATALOG LIBRARY ASSISTANT Type 2 diabetes mellitus without complication, without long-term current use of insulin (HCC)04/04/2025Refill [facility] [address] [place] [address] Yessica Keen MD Type 2 diabetes mellitus without complication, without long-term current use of insulin ([facility])from Last 3 Months Immunizations ImmunizationAdministration DatesNext DueInfluenza, injectable, quadrivalent 03/22/2020Tdap107/20/2018 Family History Medical HistoryRelationNameCommentsCKDFatherBruce ReedDiabetesFatherBruce Anushka Heart diseaseFatherBruce ReedHigh cholesterolFatherBruce ReedLow HDLFatherBruce ReedDiabetesMotherCaroline ReedGlucose intoleranceMotherCaroline ReedHigh cholesterolMotherCaroline ReedLow HDLMotherCaroline ReedSkin cancerPaternal GrandmotherRelationNameStatusCommentsFatherBruce ReedAliveMotherCaroline Anushka AlivePaternal GrandmotherSisterx1 Social History Tobacco UseTypesPacks/DayYears UsedDateSmoking [...] times a week05/31/2024How often do you attend mormonism or presybeterian services?Patient umnmejnf37/26/2024o you belong to any clubs or organizations such as mormonism groups, unions, fraternal or athletic groups, or [...] housing, medical care, and heating?Not very hard 05/31/2024[facility] [place] of Occupational Health - Occupational Stress QuestionnaireAnswerDate [...] were you homeless or living in a chcf (including now)? No05/31/2024Sex and Gender InformationValueDate RecordedSex Assigned at BirthNot on fileLegal GqeHzcf5109/17/2022 6:30 PM EDTGender IdentityNot on fileSexual OrientationNot on file Last Filed Vital Signs Vital SignReadingTime TakenCommentsBlood Kdoazqeu416/7406/14/2025 8:02 AM EST Ikljd994806/14/2025 8:02 AM MMQOfnjautgzxs76.8 ??C (98.2 ??F)08/24/2024 8:24 AM ESTRespiratory Rate--Oxygen Agxtirwzdx35%02/27/2025 2:27 PM EDTInhaled Oxygen Concentration--Mdonxp593 kg (228 lb)06/14/2025 8:02 AM SHGLhhiaz443.8 cm (5' 4.5 )05/24/2025 7:56 AM ESTBody Mass Index38.5305/24/2025 7:56 AM EST Plan of Treatment DateTypeDepartmentCare Team (Latest Contact Info)Cmmatxfpmvz93/28/2026 8:00 AM EDTOffice Visit [facility] [address] [place] [address] PumpValerie, CLARISA [address] [place], [place] [phone] Health MaintenanceDue DateLast DoneCommentsCT Neokwqcdgzag12/14/1974Colonoscopy 1973FIT1973FOBT1973 6559Shipdyunnjckv56/14/1974Pneumococcal Vaccine: Pediatrics (0 to 5 Years) and At-Risk Patients (6 to 64 Years) (1 of 2 - PCV)1992Diabetes: Retinopathy Uyfbobrmh43/3Diabetes: Hemoglobin A1C612/09/2024, 11/29/2024, 05/16/2024, Additional history existsInfluenza Vaccine (#1)/Postponed from 03/06/2025 (Patient Refused)Diabetes: Urine Protein Nldieuoob35/09/2024, 05/16/2024, 05/18/2023, Additional history existsColorectal Cancer Screening 12/21/2026FIT-DNA/4COVID-19 IqbaircDcmuaclrxhuc01/24/2021, 10/29/2020 Procedures Procedure NamePriorityDate/TimeAssociated DiagnosisCommentsXR CHEST 2V108/09/2024 9:17 AM EST [facility] VEZIRtgrver23/04/2025 8:45 AM EST SRMCOH PROTHROMBIN TIME INR W/O RSIFXzmabrk73/04/2025 8:45 AM EST ALL BASIC METABOLIC SCNWYObhsswm85/04/2025 8:45 AM EST ALL CBC WITH AUTO OWYOWyfifcb54/04/2025 8:45 AM EST ECG 12-LEAD06/08/2025 7:40 AM EST MICROALBUMIN / CREATININE URINE YXYFJWwfkmue77/03/2025 8:38 AM EST Type 2 diabetes mellitus without complication, without long-term current use of insulin (HCC) COMPREHENSIVE METABOLIC PVFECYnofbsv45/03/2025 8:32 AM EST Essential hypertension Type 2 diabetes mellitus without complication, without long-term current use of insulin (HCC) Metabolic syndrome LIPID IHMOBSsgrcoa56/03/2025 8:32 AM EST High blood triglycerides High density lipoprotein (HDL) less than 40 mg/dL HEMOGLOBIN J1QSscvqbz80/03/2025 8:32 AM EST Type 2 diabetes mellitus without complication, without long-term current use of insulin (HCC) CT SOFT TISSUE NECK WO IV RODPHTGJYugniqu60/10/2025 12:02 PM EST LAD (lymphadenopathy) of right cervical region US HEAD NECK SOFT UBAPIIMpugyeo22/10/2025 11:38 AM EST LAD (lymphadenopathy) of right cervical region CT SOFT TISSUE NECK W IV YQHPCNDRHvjpaml03/08/2025 10:26 AM EDT Neck mass US HEAD NECK SOFT LEVAIOXOPZ36/03/2025 12:22 PM EDT Palpable mass of neck LAB COLOGUARD?? COLON CANCER RYCWFINtxptbn51/18/2024 5:05 PM EDT Screening for colon cancer DIABETIC RETINOPATHY SCREENING - OU - BOTH YPEGZpbtmlr33/12/2023 12:32 PM EDT from Last 3 Months or Most Recently Relevant to Health Maintenance Results * XR CHEST 2V (06/08/2025 9:17 AM EST)Anatomical RegionLateralityModalityOther Specimen (Source)Anatomical Location / LateralityCollection Method / Volume Collection TimeReceived Time06/08/2025 9:17 AM EST Narrative 06/08/2025 9:19 AM EST [facility] ?[address] ? [place] [address] ?XRay Report ? Signed ? Patient: ANUSHKA,NANDA ?MR#: [id number] ?? : 1975 ?Acct:[id number] ?? Age/Sex: 49 / M ?ADM Date: 06/08/25 ?? Loc: PST ? Attending Dr: Radha Allen M.D. ? Ordering Physician: Radha Allen M.D. ?? Date of Service: 06/08/25 ?? Procedure(s): XR chest 2V ?? Accession Number(s): [id number] ? cc: Valerie Berry NP; Radha Allen M.D. ? [facility] ? [address] ? [place] [address] ? Patient Name: ?? NANDA ??ANUSHKA ? MRN: [facility]:[id number] ? date: 1975 ?Sex: M ?? Assigned Patient Location: SURGOUT ?? Current Patient Location: SURGOUT ?? Accession/Order Number: [id number] ?? Exam Date: 06/08/2025 ??08:55 ?Report Date: 06/08/2025 ??09:17 ? At the request of: ?? RADHA ??TIFFANY ? Procedure: ??XR chest 2V ? [...] M.D. ??06/08/2025 9:17 AM ? Dictation Location: RADIO--02 ? Electronically authenticated by: [id number] ??Y ?? Date: 06/08/2025 ??09:17 ? Dictated By: ?Greer Summers M.D. ? Signed By: ?06/08/25 0919 ? DD/ 0917 ? TD/TT: ? Power Line Installer: Procedure Note Radiology, Radiologist, - 06/08/[address] [address] XRay Report Signed Patient: NANDA REVELESMR#: [id number] : 1975Acct:[id number] Age/Sex: 49 / MADM Date: 06/08/25 Loc: PST Attending Dr: Radha Allen M.D. Ordering Physician: Radha Allen M.D. Date of Service: 06/08/25 Procedure(s): XR chest 2V Accession Number(s): [id number] cc: Valerie Berry CATALOG LIBRARY ASSISTANT; Radha Allen M.D. The [address] [address] Patient Name: NANDA REVELES MRN: [facility]:[id number] date: 1975 Sex: M Assigned Patient Location: [facility] Current Patient Location: [facility] Accession/Order Number: [id number] Exam Date: 06/08/2025 08:55 Report Date: 06/08/2025 09:17 At the request of: RADHA ALLEN MD Procedure: XR chest 2V PA AND [...] Summers M.D. 06/08/2025 9:17 AM Dictation Location: [place] [address] Electronically authenticated by: [id number] Y Date: 9:17 Dictated By: Greer Summers M.D. Signed By:06/08/25918 DD/ 6 TD/TT: Power Line Installer: Authorizing ProviderResult TypeResult StatusHilary H Timmis [facility]ISYND IMAGING Final Result * SRMCOH PROTHROMBIN TIME INR W/O COUM (06/08/2025 8:45 AM EST)ComponentValueRef RangeTest MethodAnalysis TimePerformed AtPathologist SignaturePROTHROMBIN TIME 10.99.0 - 11.6 secTBHTBH INR1.04TBHComment: DESIRED INR: 2.0-3.0 CONDITIONS NOT LISTED BELOW 2.5-3.5 FOR PROSTHETIC HEART VALVE REPLACEMENT 2.5-3.5 RECURRENT THROMBOSIS Specimen (Source)Anatomical Location / LateralityCollection Method / Volume Collection TimeReceived Time06/08/2025 8:45 AM EST06/08/2025 8:50 AM EST Narrative [facility] - 06/08/2025 10:00 AM EST Authorizing ProviderResult TypeResult StatusHilary H Timmis MDCLINISYNCFinal ResultPerforming OrganizationAddressCity/State/ZIP CodePhone Number [facility] * C[facility] APTT (06/08/2025 8:45 AM EST)ComponentValueRef RangeTest MethodAnalysis TimePerformed AtPathologist SignaturePARTIAL THROMBOPLASTIN TIME30.022.3 - 36.2 secTBHSpecimen (Source)Anatomical Location / LateralityCollection Method / VolumeCollection TimeReceived Time06/08/2025 8:45 AM EST06/08/2025 8:50 AM EST Narrative [facility] - 06/08/2025 10:00 AM EST Authorizing ProviderResult TypeResult StatusHilary H Timmis MDCLINISYNCFinal ResultPerforming OrganizationAddressCity/State/ZIP CodePhone Number [facility] * (ABNORMAL) ALL CBC WITH AUTO DIFF (06/08/2025 8:45 AM EST)ComponentValueRef RangeTest MethodAnalysis TimePerformed AtPathologist SignatureTBH WBC6.04.0 - 11.0 10 3/uLTBHTBH RBC4.914.70 - 6.10 10 6/uLTBHTBH HGB14.414.0 - 18.0 g/dLTBH TBH HCT40.9(L)42.0 - 54.0 %TBHTBH MCV83.380.0 - 94.0 fLTBHTBH MCH29.325.9 - 34.0 pgTBHTBH MCHC35.229.9 - 35.2 g/dLTBHTBH RDW13.111.0 - 15.0 %TBHTBH USE066 150 - 450 10 3/uLTBHTBH MPV10.19.5 - [...] Timmis MDCLINISYNCFinal ResultPerforming OrganizationAddressCity/State/ZIP CodePhone Number [facility] * (ABNORMAL) ALL BASIC METABOLIC PANEL (06/08/2025 8:45 AM EST)ComponentValueRef RangeTest MethodAnalysis TimePerformed AtPathologist KvxtjvtvgKWMJUH076529 - 145 mmol/LTBHPOTASSIUM4.23.5 - 5.1 mmol/YAMMPQWZKZEX93541 - 107 mmol/LTBH CAR[place]ON NKPWATA75.421.0 - 32.0 mmol/LTBHANION GAP13.2IIPTNYRRVF007(H)74 - 106 mg/dLTBHBLOOD UREA ZZVKIUYZ62.07.0 - 18.0 mg/dLTBHCREATININE0.940.70 - 1.30 mg/dLTBHTBH EGFR-AF [place]>60>=60 mL/min/1.73m 2TBHTBH EGFR-NON AF [place] >60>=60 mL/min/1.73m 2TBHBUN CREATININE RATIO19.4WFEBFVBQDF8.88.5 - 10.1 mg/dL TBHSpecimen (Source)Anatomical Location / LateralityCollection Method / Volume Collection TimeReceived Time06/08/2025 8:45 AM EST06/08/2025 8:50 AM EST Narrative [facility] - 06/08/2025 9:48 AM EST Authorizing ProviderResult TypeResult StatusHilary H Timmis MDCLINISYNCFinal ResultPerforming OrganizationAddressCity/State/ZIP CodePhone Number [facility] * ECG 12-LEAD (06/08/2025 7:40 AM EST)Anatomical RegionLateralityModalityOther Specimen (Source)Anatomical Location / LateralityCollection Method / Volume Collection TimeReceived Time06/08/2025 7:40 AM EST Narrative 06/08/2025 11:21 AM EST [facility] ?[address] ? [place] [address] ? Electrocardiograph Report ? Signed ? Patient: ANUSHKA,NANDA ?MR#: [id number] ?? : 1975 ?Acct:[id number] ?? Age/Sex: 49 / M ?ADM Date: 06/08/25 ?? Loc: PST ? Attending Dr: Radha Allen M.D. ? Ordering Physician: Radha Allen M.D. ?? Date of Service: 06/08/25 ?? Procedure(s): ECG 12 lead ?? Accession Number(s): [id number] ? cc: ?[facility] ? Test Date: ?2025-06-08 ?? Pat Name: ? NANDA ANUSHKA ? Department: ? Room: ? - ?? Gender: ? Male ? Corporate Administrative Assistant: ? : ?1975 ? Requested By: RADHA SIMSMIS ?? Order Number: [id number] ?Reading MD: ?? SAM SHAHZAD ? Measurements ?? Intervals ?Tyler ? Rate: ? 57 ? P: ?50 ?? [place]: ? 168 ?QRS: ?29 ?? QRSD: ? [...] 1121 ? DD/ 0740 ? TD/TT: ? Power Line Installer: Procedure Note Radiology, Radiologist, - 06/08/2025 The [place] [id number] Electrocardiograph Report Signed Patient: NANDA REVELESMR#: [id number] : 1975Acct:[id number] Age/Sex: 49 / MADM Date: 06/08/25 Loc: PST Attending Dr: Radha Allen M.D. Ordering Physician: Radha Allen M.D. Date of Service: 06/08/25 Procedure(s): ECG 12 lead Accession Number(s): [id number] cc: [facility] Test Date: 2025-06-08 Pat Name: NANDA REVELES Department: Room: - Gender: Male Corporate Administrative Assistant: : 1975 Requested By: RADHA ALLEN Order Number: [id number] Reading MD: SAM REYES Measurements Intervals Tyler Rate: 57 P: 50 [place]: 168 QRS: 29 QRSD: 110 T: 15 QT: 400 QTc: 391 Interpretive Statements SINUS BRADYCARDIA PROBABLE INFERIOR MYOCARDIAL INFARCTION [35 ms Q WAVE IN II/aVF], PROBABLY OLD No previous ECG available for comparison Electronically Signed On 06-08-2025 11:20:45 EST by SAM REYES Dictated By: Sam Reyes M.D. Signed By:06/08/25 1121 DD/ 0740 TD/TT: Power Line Installer: Authorizing ProviderResult TypeResult StatusHilary H Tiffany MDCLINISYNC IMAGING Final Result * Microalbumin / creatinine, urine ratio (06/07/2025 8:38 AM EST)ComponentValue Ref RangeTest MethodAnalysis TimePerformed AtPathologist SignatureCREATININE, RANDOM YDROO20270 - 320 mg/dLQUESTALBUMIN, URINE1.1See Note: mg/dLQUEST Comment: Reference Range: Reference Range Not established ALBUMIN/CREATININE RATIO, RANDOM URINE9<30 mg/g creatQUESTComment: The ADA defines abnormalities in [...] specimen obtained by clean catch procedure / Xjdmpqw8606/07/2025 8:38 AM EST06/07/2025 8:39 AM EST Narrative Resulting Agency Comment Performing Organization Information ?Site ID: QPT ?Name: [facility] ?Address: [address] [place] [address] ?Director: Cody Iniguez MD Authorizing ProviderResult TypeResult StatusElizabefidel Leal MARISSA URINE ORDERABLESFinal ResultPerforming OrganizationAddressCity/State/ZIP CodePhone Number [facility] * (ABNORMAL) Hemoglobin A1c (06/07/2025 8:32 AM [...] Volume Collection TimeReceived TimeBloodVenous blood specimen / Zhoyzyj8506/07/2025 8:32 AM EST06/07/2025 3:44 PM EST Narrative [facility] - 06/08/2025 1:47 AM EST MULTIPLE COLLECTION TIMES FOR SAME TEST TYPE. Resulting Agency Comment Performing Organization Information ?Site ID: QPT ?Name: [facility] ?Address: [facility] [place] [address] [place] [address] ?Director: Cody Iniguez MD Authorizing ProviderResult TypeResult StatusElizalashae Ida Alvael NPLAB BLOOD ORDERABLESFinal ResultPerforming OrganizationAddressCity/State/ZIP CodePhone Number [facility] * (ABNORMAL) Lipid panel (06/07/2025 8:32 AM EST)ComponentValueRef RangeTest MethodAnalysis TimePerformed AtPathologist SignatureCHOLESTEROL, AUSFJ733<200 mg/dLQUESTHDL EVVJNRBGDOE29(L)> OR = 40 mg/rSJXWVOAYSTDXZKZRCER812(H)<150 mg/dLQUESTComment: If a non-fasting specimen was collected, consider repeat triglyceride testing on a fasting specimen if clinically indicated. William et al. J. of Clin. Lipidol. 2015;9:129-169. LDL DCFLZRLCTZH12vy/dL (calc)QUESTComment: Reference range: <100 Desirable range <100 mg/dL for primary prevention; <70 mg/dL for patients with CHD or diabetic patients with > or = 2 CHD risk factors. LDL-C is now calculated using the Alli-Smith calculation, which is a validated novel method providing better accuracy than the Friedewald equation in the estimation of LDL-C. Alli SS et al. EDWARDO. 2013;310(19): 9127-3779 (http://education.Phonologics.Peatix/faq/CQE081) CHOL/HDLC RATIO2.8<5.0 (calc)QUESTNON HDL CKRUCBGXRSX68<130 mg/dL (calc)QUEST Comment: For patients with diabetes plus 1 major ASCVD risk factor, treating to a non-HDL-C goal of <100 mg/dL (LDL-C of <70 mg/dL) is considered a therapeutic option. Specimen (Source)Anatomical Location / LateralityCollection Method / Volume Collection TimeReceived TimeBloodVenous blood specimen / Loftcra2506/07/2025 8:32 AM EST06/07/2025 3:44 PM EST Narrative [facility] - 06/08/2025 1:47 AM EST MULTIPLE COLLECTION TIMES FOR SAME TEST TYPE. Resulting Agency Comment Performing Organization Information ?Site ID: QPT ?Name: [facility] ?Address: [address] [place], [place] [address] , [address] [facility] [place] [address] ?Director: Cody Iniguez MD Authorizing ProviderResult TypeResult StatusElizabefidel Prieto Elvis NPLAB BLOOD ORDERABLESFinal ResultPerforming OrganizationAddressCity/State/ZIP CodePhone Number [facility] * (ABNORMAL) Comprehensive metabolic panel (06/07/2025 8:32 AM EST)Component ValueRef RangeTest MethodAnalysis TimePerformed AtPathologist SignatureGlucose 152(H)65 - 99 mg/dLQUESTComment: ? Fasting reference interval For someone without known diabetes, a glucose value >125 mg/dL indicates that they may have diabetes and this should be confirmed with a follow-up test. DNX926 - 25 mg/dLQUESTCreatinine1.010.70 - 1.30 mg/lEFUMGEYZGZ64> OR = 60 mL/min/1.50f9RVRFYXWM/CREATININE RATIOSEE NOTE: (calc)QUESTComment: ?? Not Reported: BUN and Creatinine are within ?? reference range. ? Tldesd378986 - 146 mmol/LQUESTPotassium, Bld4.23.5 - 5.3 mmol/VIRMXNFtqmzebi540 98 - 110 mmol/LQUESTCarbon Qhxggsk2708 - 32 mmol/LQUESTCalcium9.28.6 - 10.3 mg/dLQUESTPROTEIN, TOTAL7.06.1 - 8.1 g/dLQUESTALBUMIN4.63.6 - 5.1 g/dLQUEST GLOBULIN2.41.9 - 3.7 g/dL (calc)QUESTALBUMIN/GLOBULIN RATIO1.91.0 - 2.5 (calc) QUESTBILIRUBIN, TOTAL1.00.2 - 1.2 mg/dLQUESTALKALINE ZUJPJUCYEPI7640 - 144 U/L GVYWFAMQ8966 - 35 U/NQFQKXRRN820 - 46 U/LQUESTSpecimen (Source)Anatomical Location / LateralityCollection Method / VolumeCollection TimeReceived TimeBlood Venous blood specimen / Oyjefpg4206/07/2025 8:32 AM EST06/07/2025 3:44 PM EST Narrative [facility] - 06/08/2025 1:47 AM EST MULTIPLE COLLECTION TIMES FOR SAME TEST TYPE. Resulting Agency Comment Performing Organization Information ?Site ID: QTW ?Name: [facility] ?Address: [address] [place] [address] ?Director: Mariola Beltran Authorizing ProviderResult TypeResult StatusElizabefidel Ida Leal NPLAB BLOOD ORDERABLESFinal ResultPerforming OrganizationAddressCity/State/ZIP CodePhone [...] No acute osseous findings. Procedure Note Antoine Stoen MD - 05/16/2025 HISTORY: Follow-up. Lymphadenopathy. COMPARISON: [...] BY: Antoine Stone MD Authorizing ProviderResult TypeResult StatusHilaHialeah Hospitalagata [facility]ADOCED[facility] [place] PROCEDURES Final Result * US head [...] BY: Antoine Stone MD Authorizing ProviderResult TypeResult StatusHilaKings Park Psychiatric Center Tiffany [facility] US PROCEDURES Final Result * CT soft [...] and nasal cavity appear unremarkable. The bilateral condemnation engineer, parapharyngeal, carotid and retropharyngeal spaces appear unremarkable. [...] cavities are clear. Procedure Note Naren Bhagat, DO - 04/13/2025 EXAM: CT SOFT TISSUE NECK [...] and nasal cavity appear unremarkable. The bilateral condemnation engineer, parapharyngeal, carotid and retropharyngealspaces appear unremarkable. Perivertebral [...] StatusAmber Pump NPIMG CT PROCEDURESFinal Result * Cologuard?? colon cancer screening (12/22/2023 5:05 PM EDT)ComponentValueRef RangeTest MethodAnalysis TimePerformed AtPathologist SignatureNONINV COLON CA DNA+OCC BLD SCRN STL-WBYQbgoyffiPlggncyb53/24/2024 10:29 AM EDTEXShipping Company (CLIA #:[id number])Comment: NEGATIVE TEST RESULT. A negative Cologuard result [...] screened with both Cologuard and colonoscopy. (Angelina Alvarado et al, N Engl J Med 2014;370(14):1239-5124) The normal value (reference range) for this assay is negative. COLOGUARD RE-SCREENING RECOMMENDATION: Periodic colorectal cancer screening is an important part ofpreventive healthcare for asymptomatic individuals at average risk for colorectal cancer. ??Following a negative Cologuard result, the [place] [employer] and U.S. Multi-Society Task Force screening guidelines recommend a Cologuard re-screening interval of 3 years. References: [place] [employer] Guideline for Colorectal Cancer Screening: https://www.cancer.or g/cancer/tkkzm-ghaznw-xwqqfl/uskgkpeko-gfaoowdxf-cpwiyso/acs-recommendations.htm delaney DE LA O, Shannan PINA, Dania LYLES, Colorectal Cancer Screening: Recommendations for Physicians and Patients from the U.S. Multi-Society Task Force on Colorectal Cancer Screening , Am J Gastroenterology 2017; 112:7543-5102. TEST DESCRIPTION: Composite algorithmic analysis of stool [...] screened with both Cologuard and colonoscopy. (Angelina Alvarado et al, N Engl J Med 2014;370(14):3087-0197.) Cologuard may produce a false negative or false positive result (no colorectal cancer or precancerous polyp present at colonoscopy follow up). A negative Cologuard test result does not guarantee the absence of CRC or advanced adenoma (pre-cancer). The current Cologuard screening interval is every 3 years. ([place] [employer] and U.S. Multi-Society Task Force). Cologuard performance data in a 10,000 patient pivotal study using colonoscopy as the reference method can be accessed at the following location: www.[employer].Peatix/results. Additional description of the Cologuard test process, warnings and precautions can be found at www.[facility]ier[facility]uard.com. Specimen (Source)Anatomical Location / LateralityCollection Method / Volume Collection TimeReceived TimeStool specimen (specimen)12/22/2023 5:05 PM EDT 12/24/2023 1:08 PM EDT Narrative Authorizing ProviderResult TypeResult StatusElizabefidel [facility] ORDERABLESFinal ResultPerforming OrganizationAddressCity/State/ZIP CodePhone Number [employer] (CLIA #:[id number]) [place] [address], [place] [phone] * Diabetic Retinopathy Screening - OU - Both Eyes (02/14/2023 12:32 PM EDT) Anatomical RegionLateralityModalityHeadOther Narrative Authorizing ProviderResult TypeResult StatusNoms Provider Unallocated MDOPHTH PHOTOGRAPHYFinal Result from Last 3 Months or Most Recently Relevant to Health Maintenance Insurance MemberSubscriberPlan / Payer (Effective 2022-Present)Name:Nanda Reveles Relation to Subscriber:SelfName:Nanda Reveles Payer ID:Not on file Type:Not on file Address: [facility] [address] [place] [phone] Care Teams Team MemberRelationshipSpecialtyStart DateEnd Date Efra Meyers MD [address] [place] [address] PCP - GeneralFamily Medicine04/04/25
--- OUTSIDE RECORDS SUMMARY | 2025-06-22 08:10 | XMS_ITS | Encounter Summary ---
Author Organization [facility] Address [address] [place] [address] Care Team Providers Care Envelope Press Operator Name Role Phone Efra Meyers MD Primary Care Provider [phone] Encounter Details DateTypeDepartmentCare Team (Latest Contact Info)Snvciksslxx56/10/2025Travel Social History Tobacco UseTypesPacks/DayYears UsedDateSmoking Tobacco: NeverPassive [...] times a week05/31/2024How often do you attend methodist or amish services?Patient tomhavaq30/26/2024Do you belong to any clubs or organizations such as methodist groups, unions, fraternal or athletic groups, or [...] heating?Not very hard 05/31/2024[facility] [place] [facility] - Occupational Stress QuestionnaireAnswerDate [...] InformationValueDate RecordedSex Assigned at BirthNot on fileLegal ZhtBstp7809/17/2022 6:30 PM EDTGender IdentityNot on fileSexual OrientationNot on filedocumented as of this encounter Plan of Treatment DateTypeDepartmentCare Team (Latest Contact Info)Vxduepdwsoo02/28/2026 8:00 AM EDTOffice Visit [facility] [address] [place] [phone] Valerie Berry NP [address] [place], [place] [phone] documented as of this encounter Visit Diagnoses Not on filedocumented in this encounter Care Teams Team MemberRelationshipSpecialtyStart DateEnd Date Efra Meyers MD [address] [place], [place] [phone] PCP - GeneralFamily Medicine04/04/25documented as of this encounter
[2025-06-22] MEDS: OXYMETAZOLINE HCL 0.05% NASAL SPRAY 30 SPRAY NS (09:48)
[2025-06-22] MEDS: LIDOCAINE HCL 1%-EPINEPHRINE 1:100,000 20 ML MDV 10 ML INJ (10:02)
[2025-06-22] MEDS: ACETAMINOPHEN 325 MG TABLET 650 MG PO (10:57)
== END 2025-06-22 11:50 | disposition home or self-care (01) ==
LOC: SURGOUT 08:08
PROVIDERS: PCP Nurse Practitioner Family; Visit Provider Otolaryngology
PROC: (CPT 160; principal; 2025-06-22 09:30)
DX: J33.9 Nasal polyp, unspecified (principal); E11.9 Type 2 diabetes mellitus without complications; Z79.84 Long term (current) use of oral hypoglycemic drugs; R59.0 Localized enlarged lymph nodes; J45.909 Unspecified asthma, uncomplicated; E78.5 Hyperlipidemia, unspecified; I10 Essential (primary) hypertension; Z86.718 Personal history of other venous thrombosis and embolism
CPT/HCPCS: 31237; 36415; 88305; J1100; J2003; J2250; J2405; J2704; J3010